=== PATIENT | male | born 1955 | race Caucasian/White ===

== ENCOUNTER 2025-05-09 12:32 | Outpatient (CLI) | payer MEDICARE, SELFPAY ==
--- NOTE | 2025-05-09 12:33 | XR_ITS ---
FINAL REPORT CLINICAL HISTORY: knee pain COMPARISON: None FINDINGS: LEFT KNEE Three views demonstrate no acute fracture or dislocation. There is mild narrowing of the medial compartment joint space. Chondrocalcinosis is noted of the medial and lateral joint spaces. There are mild hypertrophic changes at the medial and lateral joint margins consistent with osteoarthritis. No acute soft tissue abnormality is seen. IMPRESSION: Mild hypertrophic changes consistent with osteoarthritis. Reviewed, Interpreted and Dictated by Henry Wakefield MD Transcribed by Sheila Isbell Authenticated and [facility]
== END 2025-05-09 23:59 | disposition home or self-care (01) ==
LOC: RAD 12:33
PROVIDERS: Visit Provider Physician Assistant Surgical
DX: M17.12 Unilateral primary osteoarthritis, left knee (principal)
CPT/HCPCS: 73562

== ENCOUNTER 2025-07-08 11:17 | Outpatient (CLI) | payer MEDICARE, BC, SELFPAY ==
--- OUTSIDE RECORDS SUMMARY | 2025-05-20 14:30 | XMS_ITS | Encounter Summary ---
Author Organization [place] [address] Care Team Providers Care Metal Crafts Teacher Name Role Phone Unavailable Primary Care Provider Unavailabl e Reason for Referral * PFT (Routine) - Pending Review Specialty Diagnoses / Procedures Referred By Contac t Referred To Contact Diagnoses PAF (paroxysmal atrial fibrillation) (HCC) Procedures PULMONARY FUNCTION TEST Shefali Olivas MD [address] [place] [address] [place] [address] Phone: tel: fax: Referral ID Status Reason Start Date Expiration Date V isits Requested Visits Authorized [id number] Pending Review 05/20/2025 05/20/2026 1 1 * Holter Monitor (Routine) - Authorization Not Needed Specialty Diagnoses / Procedures Referred By Contac t Referred To Contact Radiology Diagnoses PAF (paroxysmal atrial fibrillation) (HCC) Procedures HOLTER MONITOR RECORDING AND ANALYSIS Shefali Olivas MD [address] [place] [address] [place] [address] Phone: tel: fax: Referral ID Status Reason Start Date Expiration Date Visits Requested Visits Authorized [id number] Authorization Not Needed 05/20/2025 05/20/2027 1 1 * Echo (Routine) - Authorization Not Needed Specialty Diagnoses / Procedures Referred By Contac t Referred To Contact Radiology Diagnoses PAF (paroxysmal atrial fibrillation) (HCC) Procedures EC ECHOCARDIOGRAM COMPLETE W DOPPLER AND COLOR FLOW MAPPING Shefali Olivas MD [address] [place] [address] [place] [address] Phone: tel: fax: Referral ID Status Reason Start Date Expiration Date Visits Requested Visits Authorized [id number] Authorization Not Needed 05/20/2025 05/20/2027 1 1 * Consultation (Routine) - Pending Review Specialty Diagnoses / Procedures Referred By Contac t Referred To Contact Sleep Center Diagnoses PAF (paroxysmal atrial fibrillation) (HCC) Procedures IA OFFICE/OUTPATIENT NEW MODERATE MDM 45 MINUTES Shefali Olivas MD [address] [place] [address] [place] [address] Phone: tel: fax: Anthony San MD [address] [place] [phone] Phone: tel: fax: Referral ID Status Reason Start Date Expiration Date V isits Requested Visits Authorized [id number] Pending Review 05/20/2025 05/20/2026 99 99 Question Answer What test needs to be performed? Appropriate testing as determined by sleep specialist/sleep medicine protocols Reason for Visit * Reason Comments New Patient referred to Dr. Salty enriquez by Frances Cowart APRN at [facility] for AF ablationMeds per pt report Encounter Details Date Type Department Care Team (Late st Contact Info) Description 05/20/2025 2:30 PM EDT Office Visit [facility] [address] [place] [address] Shefali Olivas MD [address] [place] [address] [place] [address] PAF (paroxysmal atrial fibrillation) (HCC) (Primary Dx) Social History Tobacco Use Types Packs/Day Years Used Date Smoking Tobacco: Never Smokeless Tobacco: Never Tobacco Cessation:Counseling Given: Not Answered Alcohol Use Standard Drinks/Week Comments Never 0 (1 standard drink = 0.6 oz pur e alcohol) Sexually Active Control Partners Comments Never Sex and Gender Information Value Date Recorded Sex Assigned at Not on file Legal Sex Male 11:20 AM EDT Gender Identity Not on file Sexual Orientation Not on file documented as of this encounter Last Filed Vital Signs Vital Sign Reading Time Taken Comments Blood Pressure 140/96 05/20/2025 2:28 PM EDT Pulse 88 05/20/2025 2:28 PM EDT Temperature - - Respiratory Rate - - Oxygen Saturation 95% 05/20/2025 2:28 PM EDT Inhaled Oxygen Concentration - - Weight - - Height - - Body Mass Index - - documented in this encounter Progress Notes * Shefali Olivas MD - 05/20/2025 2:30 PM EDT Cardiac Electrophysiology Progress Note Patient ID: Nir Thrasher is a 69 y.o. male. Chief Complaint Patient presents with New Patient referred to Dr. Olivas by Frances Cowart APRN at [facility] for AF ablation Meds per pt report Patient gets TORRES with Abstract Chronicity: referred to Dr. Olivas by Frances Cowart APRN at [facility] for AF ablation. Associated symptoms include fatigue. Pertinent negatives include no arthralgias, coughing, diaphoresis, headaches, myalgias, rash, urinary symptoms, vertigo or weakness. Their chronic cardiac conditions are: Problem List Cardiology Problems CAD (coronary artery disease) Essential hypertension Hyperlipidemia PAF (paroxysmal atrial fibrillation) ([facility]) Social History Tobacco Use Smoking Status Never Smokeless Tobacco Never Current Outpatient Medications Medication Sig Dispense Refill atorvastatin (LIPITOR) 80 mg Oral Tablet Take 80 mg by mouth daily. buPROPion (WELLBUTRIN SR) 150 mg Oral tablet sustained-release 12 hr Take 150 mg by mouth daily. DULoxetine (CYMBALTA) 30 mg Oral Capsule, Delayed Release(E.C.) Take 30 mg by mouth daily. DULoxetine (CYMBALTA) 60 mg Oral Capsule, Delayed Release(E.C.) Take 60 mg by mouth daily. fUROsemide (LASIX) 20 mg Oral Tablet Take 20 mg by mouth daily. lisinopriL (PRINIVIL;ZESTRIL) 20 mg Oral Tablet tablet Take 20 mg by mouth daily. metoprolol (LOPRESSOR) 25 mg Oral Tablet Take 25 mg by mouth 2 times daily. omeprazole (PRILOSEC) 20 mg Oral Capsule, Delayed Release(E.C.) Take 20 mg by mouth every morning (before breakfast). potassium chloride (KLOR-CON M) 20 mEq Oral Tab Sust.Rel. Particle/Crystal Take 20 mEq by mouth 2 times daily. pregabalin (LYRICA) 150 mg Oral Capsule Take 150 mg by mouth 3 times daily. rivaroxaban (XARELTO) 20 mg Oral Tablet Take 20 mg by mouth daily. spironolactone (ALDACTONE) 25 mg Oral Tablet Take 25 mg by mouth daily. tamsulosin (FLOMAX) 0.4 mg Oral Capsule Take 0.4 mg by mouth daily. No current facility-administered medications for this visit. Patients past medical, family and social histories were reviewed and updated. There were no changesexcept as noted Review of Systems Constitutional: Positive for fatigue. Negative for diaphoresis, malaise/fatigue, weight gain and weight loss. HENT: Negative for nosebleeds. Cardiovascular: Positive for irregular heartbeat. Negative for dyspnea on exertion, leg swelling, palpitations and syncope. Respiratory: Positive for shortness of breath. Negative for cough. Skin: Negative for flushing and rash. Musculoskeletal: Negative for arthralgias, falls and myalgias. Gastrointestinal: Negative for heartburn and melena. Neurological: Positive for dizziness and light-headedness. Negative for headaches, vertigo and weakness. Psychiatric/Behavioral: Negative for depression. The patient does not have insomnia. Allergic/Immunologic: Negative for hives and persistent infections. Objective: Patient Vitals for the past 24 hrs: Pulse BP 05/20/25 1428 88 140/96 There is no height or weight on file to calculate BMI. General: No apparent distress. Alert and oriented. Neck:Trachea is midline. Neck veins are flat. Respiratory: Clear to auscultation bilaterally Cardiovascular: Rhythm is regular. S1 and S2 normal. Abdomen: Abdomen is soft and non tender. Extremeties: No Edema. Clubbing is absent. Cyanosis is absent. Skin: Warm and dry. Neurological: Cranial nerves are grossly intact. Speech is normal. [id number] Stroke Risk Points: 2 Values used to calculate this score: Points Metrics 0 Has Congestive Heart Failure: No 1 Has Hypertension: Yes 1 Age: 69 0 Has Diabetes: No 0 Had Stroke: No Had TIA: No Had Thromboembolism: No 0 Has Vascular Disease: No 0 Clinically Relevant Sex: Male EKG: AF1 Assessment and Plan: Persistent AF First diagnosed, 5 years ago 2 cardioversions, last one years ago Was on sotalol for second cardioversion Will order TTE for LA size Currently rate controlled. Asymptomatic from AF standpoint. Not a good candidate for AF ablation, longstanding persistent minimal symptoms. Low amplitude fibrillatory waves on ECG, AVI referral Coronary artery disease s/p PCI at OSH Tobacco abuse 4. TORRES PFTs HM for HRV documented in this encounter Miscellaneous Notes * Patient Instructions - Brenda Bradley MA - 05/20/2025 2:30 PM EDT You may be contacted by mail or e-mail to participate in a patient satisfaction survey regarding your office visit today. We value your opinion and depend on your feedback to make improvements and provide you with the best possible experience while receiving high quality medical treatment. Your time in completing this survey is greatly appreciated. * Addendum Note - Danni Patiño MA - 05/20/2025 2:30 PM EDTAddended by: DANNI PATIÑO on: 05/20/2025 03:08 PM Modules accepted: Orders documented in this encounter Plan of Treatment Upcoming Encounters Date Type Department Care Team (Late st Contact Info) Description 07/21/2025 7:00 PM EST Appointment [facility] [address] [place] [address] 07/22/2025 1:30 PM EST Appointment [facility]G PFT [facility] [place] [address] 08/07/2025 12:45 PM EST Office [place] [facility] [address] [phone] Lety Kauffman MD [address] [place] [id number] 08/26/2025 2:00 PM EST Office Visit [facility] [address] [place] [address] Shefali Olivas MD [address] [facility] [place] [address] Scheduled Orders Name Type Priority Associated Diagnoses Orde r Schedule PULMONARY FUNCTION TEST PFT Routine PAF (paroxysmal atrial fibrillation) ([facility]) 1 Occurrences starting 05/20/2025 until 05/20/2026 Scheduled Referrals Name Type Priority Associated Diagnoses Orde r Schedule AMB REFERRAL TO SLEEP STUDIES/MEDICINE Outpatient Referral Routine PAF (paroxysmal atrial fibrillation) ([facility]) Ordered: 05/20/2025 documented as of this encounter Procedures Procedure Name Priority Date/Time Associated Diagnosis Comments POCT EKG Routine 05/20/2025 2:41 PM EDT PAF (paroxysmal atrial fibrillation) ([facility]) documented in this encounter Results * EC ECHOCARDIOGRAM COMPLETE W DOPPLER AND COLOR FLOW MAPPING (06/19/2025 2:25 PM EDT) LV DIASTOLIC PLAX 6.04 cm PYRAMIS Ejection Fraction 40-45% PYRAMIS MITRAL REGURGITATION moderate PYRAMIS AORTIC STENOSIS no PYRAMIS Anatomical Region Laterality Modality Electrocardiogra phy 06/19/2025 1:41 PM EDT Impressions 06/19/2025 3:12 PM EDT Conclusions * Left ventricular chamber dimension is mildly enlarged. * Left ventricular function is moderately reduced with an estimated ejection fraction of 40-45%. * The left ventricular diastolic function is indeterminate. * Estimated pulmonary artery systolic pressure is 33 mmHg. * Left atrial chamber dimension is severely enlarged. * Right atrial chamber dimension is severely enlarged. * There is mild to moderate mitral valve regurgitation. * The proximal ascending aorta is moderately dilated at 4.7 cm. * There is mild aortic valve regurgitation. * There is no pericardial effusion. Narrative Procedure Note Thomas Marshall MD - 06/19/2025 IMPRESSION Conclusions * Left ventricular chamber dimension is mildly enlarged. * Left ventricular function is moderately reduced with an estimatedejection fraction of 40-45%. * The left ventricular diastolic function is indeterminate. * Estimated pulmonary artery systolic pressure is 33 mmHg. * Left atrial chamber dimension is severely enlarged. * Right atrial chamber dimension is severely enlarged. * There is mild to moderate mitral valve regurgitation. * The proximal ascending aorta is moderately dilated at 4.7 cm. * There is mild aortic valve regurgitation. * There is no pericardial effusion. us Shefali Olivas MD IMG ECHO ORDERABLES Marly l Result * HOLTER MONITOR RECORDING AND ANALYSIS (06/19/2025 2:13 PM EDT) Anatomical Region Laterality Modality Holter/Event Mon itoring 06/25/2025 8:42 AM EDT Impressions 06/25/2025 10:[address] [facility] Test Date: 2025-06-25 Pat Name: [facility] Department: DEPID Room: Gender: Male Photographs Curator: : 1955 Requested By: SHEFALI MATOS Order Number: [id number] Reading MD: Adriano Harley MD Interpretive Statements Vocational Technical Education Director Date: 06/19/2025 Referring Provider: Dr. Shefali Olivas MD Patient was monitored for 48 hours. INDICATIONS: I48.0 Paroxysmal atrial fibrillation CONCLUSION: The predominant rhythm was Atrial Fibrillation/Flutter. The Maximum Heart Rate recorded was 145 bpm, 06/19 17:40:25, the Minimum Heart Rate recorded was 37 bpm, 06/20 15:06:10, and the Average Heart Rate was 70 bpm. There were 494 VE beats with a burden of <1 %. The study included an Atrial Fibrillation/Flutter [place] of 100 % with 1 % in RVR and 4 % in SVR. The longest episode was 1d 20h 40m 56.8s, 06/19 14:17:19, and the Fastest episode was 145 bpm, 06/19 14:17:19. There was 1 Patient Trigger. Electronically Signed On 06-25-2025 10:23:36 EDT by Adriano Harley MD Narrative Procedure Note Adriano Harley MD - 06/25/[address] Test Date: 2025-06-25 Pat Name: [facility] Department: DEPID Room: Gender: Male Photographs Curator: : 1955 Requested By: SHEFALI LAROSE Order Number: [id number] Reading MD: Adriano Harley MD Interpretive Statements Vocational Technical Education Director Date: 06/19/2025 Referring Provider: Dr. Shefali Olivas MD Patient was monitored for 48 hours. INDICATIONS: I48.0 Paroxysmal atrial fibrillation CONCLUSION: The predominant rhythm was Atrial Fibrillation/Flutter. The Maximum Heart Rate recorded was 145 bpm, 06/19 17:40:25, theMinimum Heart Rate recorded was 37 bpm, 06/20 15:06:10, and the Average HeartRate was 70 bpm. There were 494 VE beats with a burden of <1 %. The study included an Atrial Fibrillation/Flutter [place] of 100 % with 1% in RVR and 4 % in SVR. The longest episode was 1d 20h 40m 56.8s, 06/19 14:17:19, and the Fastest episode was 145 bpm, 06/19 14:17:19. There was 1 Patient Trigger. Electronically Signed On 06-25-2025 10:23:36 EDT by Adriano Harley MD Shefali Olivas MD IMG HOLTER MONITOR ORDER PINA Final Result * POCT EKG (05/20/2025 2:41 PM EDT) 05/20/2025 2:41 PM EDT Impressions [facility] - 05/20/2025 2:41 PM EDT Atrial Fibrillation, controlled Shefali Olivas MD POINT OF CARE CARDIOLOGY Final Result [facility] OFF[facility] documented in this encounter Visit Diagnoses Diagnosis PAF (paroxysmal atrial fibrillation) (HCC)- Primary Atrial fibrillation PAF (paroxysmal atrial fibrillation) (HCC) Atrial fibrillation PAF (paroxysmal atrial fibrillation) (HCC) Atrial fibrillation documented in this encounter Historical Medications * This list may reflect changes made after this encounter. pregabalin (LYRICA) 150 mg Oral Capsule Take 150 mg by mouth 3 times daily. fUROsemide (LASIX) 20 mg Oral Tablet Take 20 mg by mouth daily. spironolactone (ALDACTONE) 25 mg Oral Tablet Take 25 mg by mouth daily. potassium chloride (KLOR-CON M) 20 mEq Oral Tab Sust.Rel. Particle/Crystal Take 20 mEq by mouth 2 times daily. lisinopriL (PRINIVIL;ZESTRIL ) 20 mg Oral Tablet tablet Take 20 mg by mouth daily. buPROPion (WELLBUTRIN SR) 150 mg Oral tablet sustained-release 12 hr Take 150 mg by mouth daily. omeprazole (PRILOSEC) 20 mg Oral Capsule, Delayed Release(E.C.) Take 20 mg by mouth every morning (before breakfast). metoprolol (LOPRESSOR) 25 mg Oral Tablet Take 25 mg by mouth 2 times daily. rivaroxaban (XARELTO) 20 mg Oral Tablet Take 20 mg by mouth daily. tamsulosin (FLOMAX) 0.4 mg Oral Capsule Take 0.4 mg by mouth daily. DULoxetine (CYMBALTA) 60 mg Oral Capsule, Delayed Release(E.C.) Take 60 mg by mouth daily. DULoxetine (CYMBALTA) 30 mg Oral Capsule, Delayed Release(E.C.) Take 30 mg by mouth daily. atorvastatin (LIPITOR) 80 mg Oral Tablet Take 80 mg by mouth daily. added in this encounter
--- OUTSIDE RECORDS SUMMARY | 2025-06-12 14:00 | XMS_ITS | Encounter Summary ---
Author Organization [place] [address] Care Team Providers Care Director Of Admissions Name Role Phone Unavailable Primary Care Provider Unavailabl e Reason for Referral * Sleep Center (Routine) - Authorized Specialty Diagnoses / Procedures Referred By Contac t Referred To Contact Diagnoses Snoring PAF (paroxysmal atrial fibrillation) (HCC) Essential hypertension Coronary artery disease involving [place] heart without angina pectoris, unspecified vessel or lesion type Mood disorder Obesity (BMI 30.0-34.9) Procedures POLYSOMNOGRAPHY 4 OR MORE PARAMETERS POLYSOMNOGRAPHY 4 OR MORE PARAMETERS MA POLYSOM ANY AGE SLEEP STAGE 1-3 ADDL YUDITH ATTND MA POLYSOM 6/>YRS SLEEP 4/> ADDL YUDITH ATTND MA ELECTROENCEPHALOGRAM EXTEND MONITORING 41-60 MIN MA POLYSOM 6/>YRS SLEEP W/CPAP 4/> ADDL YUDITH ATTND MA SLEEP STD REC VNTJ RESPIR ECG/HRT RATE&O2 ATTN Lety Kauffman MD [address] [place] [address] Phone: tel: fax: [facility] Sleep Med [address] [address] Phone: tel: Referral ID Status Reason Start Date Expiration Date V isits Requested Visits Authorized [id number] Authorized 06/12/2025 06/12/2026 1 1 Encounter Details Date Type Department Care Team (Late st Contact Info) Description 06/12/2025 2:00 PM EDT Office Visit [facility] Sleep Medicine [address] [address] Lety Kauffman MD [address] [place] [address] Snoring (Primary Dx); PAF (paroxysmal atrial fibrillation) (HCC); Essential hypertension; Coronary artery disease involving [place] heart without angina pectoris, unspecified vessel or [...] nightly for 1 day. 1 Tablet 06/12/2025 5 documented in this encounter H&P Notes * Lety Kauffman MD - 06/12/2025 2:00 PM EDT Images from the original note were not included. New Patient Initial Visit PCP Referring physician : No primary care provider on file. 06/12/2025 Lety Kauffman MD MEDICAL DECISION MAKING Sleep Medicine Diagnoses 1. Snoring 2. PAF (paroxysmal atrial fibrillation) (HCC) 3. Essential hypertension 4. Coronary artery disease involving [place] heart without angina pectoris, unspecified vessel or [...] Present Illness Nir was sent by his manager aerospace for eval of AVI as he has [...] 05/20/2025 Hyperlipidemia 05/20/2025 PAF (paroxysmal atrial fibrillation) ([facility]) 05/20/2025 No past surgical history on file. [...] (I have reviewed all data listed below) [place] Sleepiness Scale 11 > 10 indicates Excessive Daytime Sleepiness Medical Comorbidity Pulmonary Functions Testing Results: No results found for: FEV1 , FVC , [id number] , TLC , DLCO (FEV1 < 60% [...] , HGB , HCT , PLT , [id number] , FOLATE , FERRITIN documented in this encounter Plan of Treatment Upcoming Encounters Date Type Department Care Team (Late st Contact Info) Description 07/21/2025 7:00 PM EST Appointment [facility] Sleep Disorder Center [address] [place], [place] [id number] 07/22/2025 1:30 PM EST Appointment EDG PFT LAB [facility] [place] [address] 91 08/07/2025 12:45 PM EST Office Visit [facility] [address] [phone] Lety Kauffman MD [address] [place] [address] 08/26/2025 2:00 PM EST Office Visit [facility] [address] [facility] [address] [place] [address] Paulino Olivas MD [address] [facility] [address] Scheduled Orders Name Type Priority Associated Diagnoses Orde r Schedule POLYSOMNOGRAPHY 4 OR MORE PARAMETERS Sleep Center Routine Snoring PAF (paroxysmal atrial fibrillation) (HCC) Essential hypertension Coronary artery disease involving [place] heart without angina pectoris, unspecified vessel or lesion type Mood disorder Obesity (BMI 30.0-34.9) 1 Occurrences starting 06/12/2025 until 06/12/2026 documented as of this encounter Visit Diagnoses Diagnosis Snoring- Primary Other dyspnea and respiratory abnormality PAF (paroxysmal atrial fibrillation) (HCC) Atrial fibrillation Essential hypertension Unspecified essential hypertension Coronary artery disease involving [place] heart without angina pectoris, unspecified vessel or lesion type Mood disorder Unspecified episodic mood disorder Obesity (BMI 30.0-34.9) Obesity, unspecified documented in this encounter
--- OUTSIDE RECORDS SUMMARY | 2025-06-19 12:30 | XMS_ITS | Encounter Summary ---
Author Organization [place] [address] Care Team Providers Care Caretaker Resort Name Role Phone Unavailable Primary Care Provider Unavailabl e Reason for Referral * Holter Monitor (Routine) - Authorization Not Needed Specialty Diagnoses / Procedures Referred By Contac t Referred To Contact Radiology Diagnoses PAF (paroxysmal atrial fibrillation) (HCC) Procedures HM HOLTER MONITOR RECORDING AND ANALYSIS Paulino Olivas MD [address] [place] [address] [place] [address] Phone: tel: fax: Referral ID Status Reason Start Date Expiration Date Visits Requested Visits Authorized [id number] Authorization Not Needed 05/20/2025 05/20/2027 1 1 Reason for Visit * Holter Monitor (Routine) - Authorization Not Needed Specialty Diagnoses / Procedures Referred By Jackelyn herron Referred To Contact Radiology Diagnoses PAF (paroxysmal atrial fibrillation) (HCC) Procedures HM HOLTER MONITOR RECORDING AND ANALYSIS Paulino Olivas MD [address] [place] [address] [place] [address] Phone: tel: fax: Referral ID Status Reason Start Date Expiration Date Visits Requested Visits Authorized [id number] Authorization Not Needed 05/20/2025 05/20/2027 1 1 Encounter Details Date Type Department Care Team (Latest Contact Info) Description 06/19/2025 12:30 PM EDT - 06/19/2025 12:51 PM EDT Hospital Encounter EDG HOLTER MONITOR [facility] [place] [address] Paulino Olivas MD [address] [place] [address] [place] [address] PAF (paroxysmal atrial fibrillation) ([facility]) Discharge Disposition: Home or Self Care Social [...] Info) Description 07/21/2025 7:00 PM EST Appointment [facility] Sleep Disorder Center [place] [address] [facility] [address] [place] [address] 07/22/2025 1:30 PM EST Appointment EDG PFT LAB [place] [address] 08/07/2025 12:45 PM EST Office Visit [facility] [address] [address] Lety Kauffman MD [address] [place] [id number] 08/26/2025 2:00 PM EST Office Visit [facility] Arr[facility]ia Ctr Edg [address] [facility] [address] [place] [address] Paulino Olivas MD [address] [place] [address] [place] [address] documented as of this encounter Procedures Procedure [...] NIR JOHNSON Department: DEPID Room: Gender: Male [employer] Sales Consultant: : 1955 Requested By: PAULINO MATOS Order Number: [id number] Antonio MD: Adriano Harley MD Interpretive Statements Share Dairy Farmer Date: 06/19/2025 Referring Provider: Dr. Paulino Olivas [...] %. The study included an Atrial Fibrillation/Flutter [place] of 100 % with 1 % in [...] [facility] [place] Test Date: 2025-06-25 Pat Name: [facility] Department: DEPID Room: Gender: Male [employer] Sales Consultant: : 1955 Requested By: PAULINO LAROSE Order Number: [id number] Reading MD: Adriano Harley MD Interpretive Statements Share Dairy Farmer Date: 06/19/2025 Referring Provider: Dr. Paulino Olivas [...] %. The study included an Atrial Fibrillation/Flutter [place] of 100 % with 1% in RVR [...]
--- OUTSIDE RECORDS SUMMARY | 2025-06-19 12:52 | XMS_ITS | Encounter Summary ---
Author Organization [place] [address] Care Team Providers Care Life Support Technician Name Role Phone Unavailable Primary Care Provider Unavailabl e Reason for Referral * Echo (Routine) - Authorization Not Needed Specialty Diagnoses / Procedures Referred By Contac t Referred To Contact Radiology Diagnoses PAF (paroxysmal atrial fibrillation) (HCC) Procedures EC ECHOCARDIOGRAM COMPLETE W DOPPLER AND COLOR FLOW MAPPING Paulino Olivas MD [address] [place] [address] [place] [address] Phone: tel: fax: Referral ID Status Reason Start Date Expiration Date Visits Requested Visits Authorized [id number] Authorization Not Needed 05/20/2025 05/20/2027 1 1 Reason for Visit * Echo (Routine) - Authorization Not Needed Specialty Diagnoses / Procedures Referred By Contac t Referred To Contact Radiology Diagnoses PAF (paroxysmal atrial fibrillation) (HCC) Procedures EC ECHOCARDIOGRAM COMPLETE W DOPPLER AND COLOR FLOW MAPPING Paulino Olivas MD [address] [place] [address] [place] [address] Phone: tel: fax: Referral ID Status Reason Start Date Expiration Date Visits Requested Visits Authorized [id number] Authorization Not Needed 05/20/2025 05/20/2027 1 1 Encounter Details Date Type Department Care Team (Latest Contact Info) Description 06/19/2025 12:52 PM EDT - 06/19/2025 11:59 PM EDT Hospital Encounter EDG ECHO [facility] [address] [place] [address] Paulino Olivas MD [address] [place] [address] [address] [place] [facility] [place] PAF (paroxysmal atrial fibrillation) ([facility]ER[facility]) Discharge Disposition: Home or Self Care Social [...] Info) Description 07/21/2025 7:00 PM EST Appointment [facility] Sleep Disorder Center [place] [address] [facility] [address] [place] [address] 07/22/2025 1:30 PM EST Appointment EDG PFT LAB One [facility] [place] [address] 08/07/2025 12:45 PM EST Office Visit [facility] [address] [phone] Lety Kauffman MD [address] [place] [phone] 08/26/2025 2:00 PM EST Office Visit [facility] [address] [facility] [address] [place] [address] Paulino Olivas MD [address] [facility] [place] [address] documented as of this encounter Procedures [...]
--- NOTE | 2025-07-08 | CA_ITS ---
APPROVED REPORT Exam: Pharmacologic Technologist: Cady Oseguera Stress Nurse: Doris DIGGS, RN Ht: 6 ft 0 in Wt: 256 lbs BSA: 2.37 m2 HR: 59 bpm BP: 145/99 mmHg Indications: Chest pain Stress Test Details Test: Lexiscan HR Resting HR: 59 bpm Max Heart Rate (APMHR): 150.795179 bpm Max HR Achieved: 82 bpm Target HR (85% APMHR): 127.706689 bpm % of APMHR: 54.67 Recovery HR: 65 bpm BP Resting BP: 145.0/99.0 mmHg Max BP: 144.0/95.0 mmHg Recovery BP: 141.0/90.0 mmHg ECG Resting ECG: Atrial fibrillation rate controlled Stress ECG Conclusion Lungs clear to auscultation prior to test start. Symptoms: None Arrhythmias/Ectopy: None ST-T Changes: Less than 0.[address] segment changes. Conclusion: Nondiagnostic ECG/Lexiscan Electronically signed by : Germaine Cruz MD 07/09/2025 12:23:41
--- OUTSIDE RECORDS SUMMARY | 2025-07-08 11:21 | XMS_ITS | Encounter Summary ---
Author Organization [employer] [address] Care Team Providers Care Forestry Engineer Name Role Phone Unavailable Primary Care Provider Unavailabl e Reason for Visit * Reason Onset Date Comments Appointment Needed 05/16/2025 ANIMAL PHYSIOLOGY TEACHER appt ref rodrigo y Frances Cowart APRN @ [facility] Encounter Details Date Type Department Care Team (Late st Contact Info) Description 05/16/2025 Telephone [facility] [address] [facility] [address] [place] [address] Paulino Olivas MD [address] [place], [place] [phone] Appointment Needed (ANIMAL PHYSIOLOGY TEACHER appt ref by Frances Cowart APRN @ [facility]) Social History Tobacco Use Types Packs/Day Years Used Date Smoking Tobacco: Never Assessed Sex and Gender Information Value Date Recorded Sex Assigned at Not on file Legal Sex Male 11:20 AM EDT Gender Identity Not on file Sexual Orientation Not on file documented as of this encounter Miscellaneous Notes * Telephone Encounter - Nuria Chatman Clerical Staff - 05/16/2025 1:39 PM EDT Patient returned call. Appointment scheduled * Telephone Encounter - Michelle Woods MA - 05/16/2025 12:[address] [facility] * Telephone Encounter - Nuria Chatman, Clerical Staff - 05/16/2025 12:49 PM EDT Called and left a message on vm * Telephone Encounter - Manda Huang Clerical Staff - 05/16/2025 12:22 PM EDT Patient is being referred to Dr. Olivas by Frances Cowart APRN at [facility] for AF ablation. MR/REF scanned into media including EKG tracing. Please contact patient at [phone] Thank you documented in this encounter Plan of Treatment Upcoming Encounters Date Type Department Care Team (Late st Contact Info) Description 07/21/2025 7:00 PM EST Appointment [facility] Sleep Disorder Center [address] [place] [address] 07/22/2025 1:30 PM EST Appointment EDG PFT LAB [facility] [place] [address] 08/07/2025 12:45 PM EST Office Visit [facility] [address] [phone] Lety Kauffman MD [address] [place] [address] 08/26/2025 2:00 PM EST Office Visit [facility] [address] [facility] [place] [address] Paulino Olivas MD [address] [place] [address] [place] [address] documented as of this encounter Visit Diagnoses Not on filedocumented in this encounter
--- OUTSIDE RECORDS SUMMARY | 2025-07-08 11:21 | XMS_ITS | Clinical Summary ---
Author Organization [facility] [place] Address [address] [facility] [address] [place] [address] Phone Care Team Providers Care Barking Machine Feeder Name Role Phone Unavailable Primary Care Provider Unavailabl e Allergies Active Allergy Reactions Criticality Noted Date Comments Adhesive Rash 05/20/2025 Medications atorvastatin (LIPITOR) 80 mg Oral Tablet Take 80 mg by mouth daily. Active DULoxetine (CYMBALTA) 30 mg Oral Capsule, Delayed Release(E.C.) Take 30 mg by mouth daily. Active DULoxetine (CYMBALTA) 60 mg Oral Capsule, Delayed Release(E.C.) Take 60 mg by mouth daily. Active tamsulosin (FLOMAX) 0.4 mg Oral Capsule Take 0.4 mg by mouth daily. Active rivaroxaban (XARELTO) 20 mg Oral Tablet Take 20 mg by mouth daily. Active metoprolol (LOPRESSOR) 25 mg Oral Tablet Take 25 mg by mouth 2 times daily. Active omeprazole (PRILOSEC) 20 mg Oral Capsule, Delayed Release(E.C.) Take 20 mg by mouth every morning (before breakfast). Active buPROPion (WELLBUTRIN SR) 150 mg Oral tablet sustained-relea se 12 hr Take 150 mg by mouth daily. Active lisinopriL (PRINIVIL;ZESTR IL) 20 mg Oral Tablet tablet Take 20 mg by mouth daily. Active potassium chloride (KLOR-CON M) 20 mEq Oral Tab Sust.Rel. Particle/Vivian l Take 20 mEq by mouth 2 times daily. Active spironolactone (ALDACTONE) 25 mg Oral Tablet Take 25 mg by mouth daily. Active fUROsemide (LASIX) 20 mg Oral Tablet Take 20 mg by mouth daily. Active pregabalin (LYRICA) 150 mg Oral Capsule Take 150 mg by mouth 3 times daily. Active mirtazapine (REMERON) 15 mg Oral Tablet Take 1 Tablet by mouth nightly for 1 day. 1 Tablet 06/12/2025 06/13/20 Active Problems Problem Noted Date Diagnosed Date PAF (paroxysmal atrial fibrillation) 05/20/2025 CAD (coronary artery disease) 05/20/2025 Hyperlipidemia 05/20/2025 Essential hypertension 05/20/2025 Encounters Date Type Department Care Team Description 07/04/2025 Telephone [facility] [address] [place] [phone] Paulino Olivas MD Results (ECHO and other tests ) 06/19/2025 12:52 PM EDT - 06/19/2025 11:59 PM EDT Hospital Encounter EDG ECHO [facility] [address] [place] [id number] Paulino Olivas MD PAF (paroxysmal atrial fibrillation) (HCC) Discharge Disposition: Home or Self Care 06/19/2025 12:30 PM EDT - 06/19/2025 12:51 PM EDT Hospital Encounter EDG HOLTER MONITOR [facility] [place] [address] Paulino Olivas MD PAF (paroxysmal atrial fibrillation) (HCC) Discharge Disposition: Home or Self Care 06/19/2025 Results Follow-Up [facility] [address] [place] [phone] Paulino Olivas MD EC ECHOCARDIOGRAM COMPLETE W DOPPLER AND COLOR FLOW MAPPING 06/12/2025 2:00 PM EDT Office Visit [facility] Sleep Medicine [address] [phone] Lety Kauffman MD Snoring (Primary Dx); PAF (paroxysmal atrial fibrillation) (HCC); Essential hypertension; Coronary artery disease involving chicken ranch heart without angina pectoris, unspecified vessel or lesion type; Mood disorder; Obesity (BMI 30.0-34.9) 05/21/2025 Telephone [facility] [address] [place] [address] Paulino Olivas MD Other 05/20/2025 2:30 PM EDT Office Visit [facility] [address] [facility] [address] [place] [address] Paulino Olivas MD PAF (paroxysmal atrial fibrillation) (HCC) (Primary Dx) 05/16/2025 Telephone [facility] [address] [facility] [address] [place] [address] Paulino Olivas MD Referral 05/16/2025 Telephone [facility] [address] [facility] [address] [place] [address] Paulino Olivas MD Appointment Needed (MATERIAL HANDLER FLOORPERSON appt ref by Frances Cowart APRN @ [facility]) from Last 3 Months Medical History Medical History Date Comments PAF (paroxysmal atrial fibrillation) (HCC) 05/20 CAD (coronary artery disease) 05/20/2025 Hyperlipidemia 05/20/2025 Essential hypertension 05/20/2025 Social History Tobacco Use Types Packs/Day Years [...] on file Sexual Orientation Not on file Last Filed Vital Signs Vital Sign Reading Time Taken Comments Blood Pressure 140/96 05/20/2025 2:28 PM EDT Pulse 88 05/20/2025 2:28 PM EDT Temperature - - Respiratory Rate - - Oxygen Saturation 95% 05/20/2025 2:28 PM EDT Inhaled Oxygen Concentration - - Weight - - Height - - Body Mass Index - - Plan of Treatment Upcoming Encounters Date Type Department Care Team (Late st Contact Info) Description 07/21/2025 7:00 PM EST Appointment [facility] Sleep Disorder Center [address] [place] [address] 07/22/2025 1:30 PM EST Appointment EDG PFT LAB [facility] [address] 08/07/2025 12:45 PM EST Office Visit [facility] [address] [phone] Lety Kauffman MD [address] [place] [address] 08/26/2025 2:00 PM EST Office Visit [facility] [address] [facility] [address] [place] [address] Paulino Olivas MD [address] [facility] [place] [address] Health Maintenance Due Date Last Done Comments Wellness Exam Medicare 1958 Hepatitis C Screening 1972 Cologuard 1999 Colon Cancer Screening 1999 Colonoscopy 1999 FIT 1999 Sigmoidoscopy 1999 Virtual Colonography 1999 Zoster (1 of 2) 2004 Pneumococcal Vaccine 50+ (2 of 2 - PCV) 05/04/2011 05/04/2010, 09/18/2007 RSV or 60+ (1 - Ris k 60-74 years 1-dose series) 2014 DTaP/TDaP/Td (2 - Td or Tdap) 08/27/2022, 08/22/1996 COVID-19 Vaccine (1 - 2024-2 6 season) 2025 Influenza Vaccine (#1) 2025 Hepatitis B Vaccine Aged Out No longe r eligible based on patient's age to complete this topic Meningococcal B Vaccine Aged Out No l onger eligible based on patient's age to complete this topic Procedures Procedure Name Priority Date/Time Associated Diagnosis Comments EC ECHOCARDIOGRAM COMPLETE W DOPPLER AND COLOR FLOW MAPPING Routine 06/19/2025 2:25 PM EDT PAF (paroxysmal atrial fibrillation) (HCC) HM HOLTER MONITOR RECORDING AND ANALYSIS Routine 06/19/2025 2:13 PM EDT PAF (paroxysmal atrial fibrillation) (HCC) POCT EKG Routine 05/20/2025 2:41 PM EDT PAF (paroxysmal atrial fibrillation) ([facility]) from Last 3 Months Results * EC ECHOCARDIOGRAM COMPLETE W DOPPLER [...] * There is no pericardial effusion. us Paulino Olivas MD IMG ECHO ORDERABLES Marly l Result * HOLTER MONITOR RECORDING AND ANALYSIS (06/19/2025 2:13 PM EDT) Anatomical Region Laterality Modality Holter/Event Mon itoring 06/25/2025 8:42 AM EDT Impressions 06/25/2025 10:[address] [facility] Test Date: 2025-06-25 Pat Name: [facility] Department: DEPID Room: Gender: Male Hand Booked Folder And Stitcher: : 1955 Requested By: PAULINO MATOS Order Number: [id number] Antonio MD: Adriano Harley MD Interpretive Statements Monorail Operator Date: 06/19/2025 Referring Provider: Dr. Paulino Olivas [...] %. The study included an Atrial Fibrillation/Flutter Phelan of 100 % with 1 % in [...] [place]ha [place] Test Date: 2025-06-25 Pat Name: [facility] Department: DEPID Room: Gender: Male Hand Booked Folder And Stitcher: : 1955 Requested By: PAULINO LAROSE Order Number: [id number] Antonio MENJIVAR: Adriano Harley MD Interpretive Statements Monorail Operator Date: 06/19/2025 Referring Provider: Dr. Paulino Olivas [...] %. The study included an Atrial Fibrillation/Flutter Phelan of 100 % with 1% in RVR and 4 % in SVR. The longest episode was 1d 20h 40m 56.8s, 06/19 14:17:19, and the Fastest episode was 145 bpm, 06/19 14:17:19. There was 1 Patient Trigger. Electronically Signed On 06-25-2025 10:23:36 EDT by Adriano Harley MD Paulino Olivas MD IMG HOLTER MONITOR ORDER PINA Final Result * POCT EKG (05/20/2025 2:41 PM EDT) 05/20/2025 2:41 PM EDT Impressions [facility] OFFICE - 05/20/2025 2:41 PM EDT Atrial Fibrillation, controlled us Paulino Olivas MD POINT OF CARE CARDIOLOGY Final Result [facility] OFFICE from Last 3 Months [place] [address] [facility] MEDICARE [place] PART A AND B ANTH
--- OUTSIDE RECORDS SUMMARY | 2025-07-08 11:21 | XMS_ITS | Encounter Summary ---
Author Organization [place] [address] Care Team Providers Care Crutch Maker Name Role Phone Unavailable Primary Care Provider Unavailabl e Encounter Details Date Type Department Care Team (Latest Contact Info) Description 06/19/2025 Results Follow-Up [facility] [address] [facility] [address] [place] [address] Paulino Olivas MD [address] [facility] [place] [address] EC ECHOCARDIOGRAM COMPLETE W DOPPLER AND COLOR FLOW MAPPING Social History Tobacco Use Types Packs/Day Years [...] on file documented as of this encounter Plan of Treatment Upcoming Encounters Date Type Department Care Team (Late st Contact Info) Description 07/21/2025 7:00 PM EST Appointment [facility] Sleep Disorder Center [place] [id number] [facility] [address] [place] [address] 07/22/2025 1:30 PM EST Appointment EDG PFT LAB [facility] [place] [address] 08/07/2025 12:45 PM EST Office Visit [facility] [address] [phone] Lety Kauffman MD [address] [place] [address] 08/26/2025 2:00 PM EST Office Visit [facility] [address] [place] [address] [place] [phone] Paulino Olivas MD [address] [place] [address] documented as of this encounter Visit Diagnoses Not on filedocumented in this encounter
--- OUTSIDE RECORDS SUMMARY | 2025-07-08 11:21 | XMS_ITS | Encounter Summary ---
Author Organization [place] [address] Care Team Providers Care Store Detective Name Role Phone Unavailable Primary Care Provider Unavailabl e Reason for Visit * Reason Onset Date Comments Other 05/21/2025 Encounter Details Date Type Department Care Team (Late st Contact Info) Description 05/21/2025 Telephone [facility] [address] [facility] [address] [place] [address] Paulino Olivas MD [address] [place] [phone] Other Social History Tobacco Use Types Packs/Day Years [...] encounter Miscellaneous Notes * Telephone Encounter - Anisha Rodriguez APRN - 05/22/2025 1:59 PM EDT Called and spoke with patient. Answered questions. Patient is scheduled for an ablation but it is afew hours away and he is just trying to decide if he should proceed or if he should wait until testing that Dr. Olivas ordered is done. He will probably reschedule his ablation, get the testing andthen see what happens. He also asked about a medication that started with an A that Dr. Olivas brought up. He said forhis rhythm. I advised most likely Amiodarone. He said that was it. He really is not wanting to takeany additional medications. Anisha Rodriguez APRN Cardiac Electrophysiology * Telephone Encounter - Nuria Chatman, Clerical Staff - 05/21/2025 4:25 PM EDT Patient was seen for AF, Echo, HM and PFT prior He is calling because he would like to talk to a nurse practitioner. He has some questions about the visit and treatment moving forward. Please call Nir @ [phone] Thank you documented in this encounter Plan of Treatment Upcoming Encounters Date Type Department Care Team (Late st Contact Info) Description 07/21/2025 7:00 PM EST Appointment [facility] Sleep Disorder Center [address] [place] [address] 07/22/2025 1:30 PM EST Appointment EDG PFT LAB [facility] [place] [address] 08/07/2025 12:45 PM EST Office Visit [facility] [address] [phone] Lety Kauffman MD [address] [place] [address] 08/26/2025 2:00 PM EST Office Visit [facility] [address] [facility] [address] [place] [address] Paulino Olivas MD [address] [place] [address] [place] [address] documented as of this encounter Visit Diagnoses Not on filedocumented in this encounter
--- OUTSIDE RECORDS SUMMARY | 2025-07-08 11:21 | XMS_ITS | Encounter Summary ---
Author Organization [place] [address] Care Team Providers Care Plaster Form Maker Name Role Phone Unavailable Primary Care Provider Unavailabl e Reason for Visit * Reason Onset Date Comments Results 07/04/2025 ECHO and other t ests Encounter Details Date Type Department Care Team (Late st Contact Info) Description 07/04/2025 Telephone [facility] [address] [facility] [address] [place] [address] Paulino Olivas MD [address] [place] [phone] Results (ECHO and other tests ) Social History Tobacco Use Types Packs/Day Years [...] Telephone Encounter - Anisha Rodriguez APRN - 07/04/2025 1:41 PM EDT Called and went over Echo re: EF, LA size. Patient has ablation [place] at [place] and is trying to decide if he should proceed. I recommended he contact the EP doing the procedure and maybe have him review the recent Echo. He asked if he should proceed with PFT/Sleep study and I recommended that he should. Anisha Rodriguez APRN Cardiac Electrophysiology ,w * Telephone Encounter - Nuria Chatman, Clerical Staff - 07/04/2025 1:29 PM EDT Patient is seen for AF. He is calling because he is calling for the results of the ECHO. Please call Nir @ [phone] Thank you documented in this encounter Plan of Treatment Upcoming Encounters Date Type Department Care Team (Late st Contact Info) Description 07/21/2025 7:00 PM EST Appointment [facility] Sleep Disorder Center [place] [address] [place] [address] [address] [place] [address] 07/22/2025 1:30 PM EST Appointment EDG PFT LAB [facility] [place] [address] 08/07/2025 12:45 PM EST Office Visit [facility] [address] [phone] Lety Kauffman MD [address] [place] [phone] 08/26/2025 2:00 PM EST Office Visit [facility] [address] [facility] [address] [place] [address] Paulino Olivas MD [address] [place] [address] [place] [address] documented as of this encounter Visit Diagnoses Not on filedocumented in this encounter
--- OUTSIDE RECORDS SUMMARY | 2025-07-08 11:21 | XMS_ITS | Encounter Summary ---
Author Organization [place] [address] Care Team Providers Care Patient Relations Coordinator Name Role Phone Unavailable Primary Care Provider Unavailabl e Reason for Visit * Reason Onset Date Comments Referral 05/16/2025 Encounter Details Date Type Department Care Team (Late st Contact Info) Description 05/16/2025 Telephone [facility] [address] [facility] [address] [place] [address] Paulino Olivas MD [address] [facility] [address] [facility] Referral Social History Tobacco Use Types Packs/Day Years Used Date Smoking Tobacco: Never Assessed Sex and Gender Information Value Date Recorded Sex Assigned at Not on file Legal Sex Male 11:20 AM EDT Gender Identity Not on file Sexual Orientation Not on file documented as of this encounter Miscellaneous Notes * Telephone Encounter - Michelle Woods MA - 05/16/2025 12:51 PM EDT [facility] to set up inpatient pharmacist appointment with [employer] refered for AF ablation discussion First available 05/20 documented in this encounter Plan of Treatment Upcoming Encounters Date Type Department Care Team (Late st Contact Info) Description 07/21/2025 7:00 PM EST Appointment [facility] Sleep Disorder Center [place] [phone] [place] [facility] [address] [place] [address] 07/22/2025 1:30 PM EST Appointment EDG PFT LAB [place] [address] 08/07/2025 12:45 PM EST Office Visit [facility] [address] [phone] Lety Kauffman MD [address] [place] [phone] 08/26/2025 2:00 PM EST Office Visit [facility] [address] [facility] [address] [place] [address] Paulino Olivas MD [address] [place] [address] documented as of this encounter Visit Diagnoses Not on filedocumented in this encounter
--- NOTE | 2025-07-08 11:30 | NM_ITS ---
APPROVED REPORT Exam: Nuclear Stress Test Indication: Chest pain, SOB, HTN, High cholesterol, Tobacco use, Family history, Dizziness, CAD, Hx of AL Patient Location: Outpatient Stress Tech: Cady Oseguera [place] Tech:Rosa Lemons, ARRT, RT (R)(N) Ht: 6 ft 0 in Wt: 250 lbs HR: 58 bpm BP: 145/99 mmHg BSA: 2.34 m2 TID: 0.87 History: Chest pain, SOB, HTN, High cholesterol, Tobacco use, Family history, Dizziness, CAD, Hx of AL Procedure: Patient received 0.4 mg of intravenous Lexiscan, resting heart rate 58 bpm, resting blood pressure 145/99 mmHg, with Lexiscan maximum heart rate achieved was 82 bpm which is % of the maximum predicted heart rate and blood pressure was 144/95 mmHg. With Lexiscan, patient denied any complaint of chest pain. Cardiac Stress and Resting SPECT Images: Cardiac Stress and Resting SPECT images were obtained using technetium 99m Myoview 32.0 mCi stress and 10.26 mCi at rest. Resting and stress imaging in supine and prone positions demonstrate a large sized, severe, fixed perfusion defect in the inferior LV wall. There is also a medium sized, moderate, partially reversible perfusion defect in the septal LV wall. Findings are suggestive of partial reversible ischemia. Gated imaging demonstrates mild reduction global LV systolic function. LVEF is calculated 46%. Conclusion: Large sized, severe, fixed perfusion defect in the inferior LV wall. There is also a medium sized, moderate, partially reversible perfusion defect in the septal LV wall. Findings are suggestive of partial reversible ischemia. Gated imaging demonstrates mild reduction global LV systolic function. LVEF is calculated 46%. Electronically signed by : Germaine Cruz MD 07/09/2025 13:03:22
[2025-07-08 12:50] VITALS: BP 145/99; PULSE 59; RESP 14
[2025-07-08] MEDS: ISOTOPE MYOVIEW (PER STUDY) 1 DOSE IV (13:32)
[2025-07-08] MEDS: SODIUM CHLORIDE 0.9% 10ML SYR (RAD ONLY) 10 ML IV ×2 (13:32)
== END 2025-07-08 23:59 | disposition home or self-care (01) ==
LOC: RAD 11:18
PROVIDERS: PCP Student in an Organized Health Care Education/Training Program; Visit Provider Physician Assistant
DX: I25.10 Atherosclerotic heart disease of native coronary artery without angina pectoris (principal); I11.9 Hypertensive heart disease without heart failure; E78.00 Pure hypercholesterolemia, unspecified; Z72.0 Tobacco use; I25.2 Old myocardial infarction; R94.39 Abnormal result of other cardiovascular function study
CPT/HCPCS: 78452; 93017; 93018; A9502; J2785

== ENCOUNTER 2025-07-09 15:18 | Outpatient (CLI) | payer MEDICARE, BC, SELFPAY ==
[2025-07-09 19:58] LABS: Chloride 101 mmol/L (98-107); Potassium 4.6 mmoL/L (3.5-5.1); Sodium 138 mmol/L (136-145)
[2025-07-09 20:01] LABS: Anion Gap 11.6 mEq/L (5-15); Blood Urea Nitrogen 16 mg/dl (9-20); Calcium 8.8 mg/dl (8.4-10.2); Carbon Dioxide 30 mmol/L (22.0-30.0); Creatinine,Serum 1.10 mg/dl (0.66-1.25); Estimated Glomerular Filt Rate 66 ml/min (>60); GFR (African American) 80 ML/MIN (>60); Glucose 94 mg/dl (74-100)
== END 2025-07-09 23:59 ==
LOC: LAB.DROPOF 07-11 09:06
PROVIDERS: PCP Student in an Organized Health Care Education/Training Program; Visit Provider Student in an Organized Health Care Education/Training Program
DX: I50.9 Heart failure, unspecified (principal)
CPT/HCPCS: 80048

== ENCOUNTER 2025-08-06 10:15 | Day surgery (SDC) | payer MEDICARE, BC, SELFPAY ==
[2025-08-06] VITALS (12 sets, daily range): BP systolic 126–170; BP diastolic 77–113; PULSE 55–93; RESP 18–20; TEMP 36.1–37; O2SAT 93–99; BMI 35.1
--- NOTE | 2025-08-06 07:13 | IR_ITS ---
APPROVED REPORT Patient Location: Outpatient Application Integrator: Arron Samano, RT (R) PROCEDURES Left heart catheterization Left ventriculogram Selective coronary angiogram Drug-eluting stent deployment to the ostial proximal mid and distal dominant right coronary artery in a contiguous manner Drug-eluting stent deployment to the mid LAD INDICATION Coronary artery disease, Angina pectoris, Abnormal Myoview Informed consent was obtained prior to the procedure. COMPLICATIONS NONE Estimated Blood Loss: LESS THAN 10 ML TECHNIQUE One percent lidocaine used to anesthetize the right anterior aspect of the wrist. The right radial artery was accessed via the Seldinger technique. A 6 Occitan sheath was placed in the right radial artery. 2.5 mg of Verapamil, 800 mcg of nitroglycerin, 1mg Lidocaine and 5000 U Heparin were given through the arterial sheath. The JL3 catheter was also used to perform left heart catheterization, left ventriculogram and selective coronary angiogram. At the end the diagnostic angiogram therapeutic heparin was administered giving a therapeutic ACT and the guide catheter was placed in the left main artery followed by Choice PT after support wire placed distally. A 3.5 x 18 mm [place] frontier stent was deployed at 22 akbar reducing the severe stenosis to 0%. TYRONE-3 flow was present before and after the procedure. Following this catheter was switched out and an AL 0.75 guide catheter was placed in the right coronary artery. This vessel was stented earlier in the procedure using the JL 3 guide catheter however there was not adequate support. Ultimately a GuideLiner was required along with a Choice PT extra-support wire and a 5 mm x 30 mm Jude frontier stent was deployed at 20 akbar in the ostial proximal right coronary artery. This was followed by placement of an additional 5 mm x 30 mm [place] frontier stent placed distal to the first and yet still overlapping and deployed at 20 kabar. A 4 mm x 38 mm [place] frontier stent was then placed distal to the second stent yet still overlapping and deployed distally at 20 akbar. A 5 mm x 12 mm balloon was then placed into the 4 mm stent and deployed at 20 akbar up and down the stent to post dilate. TYRONE-3 flow was present before and after the procedure. At the end the procedure the apparatus was removed the sheath was removed and hemostasis was achieved using TR banding patient was transferred to the postop putting in stable condition ANGIOGRAPHIC RESULTS The left main artery Normal The left anterior descending artery Has proximal 30% stenoses with a focal 80 to 90% concentric in-stent restenotic lesion. The remaining LAD is widely patent with mild luminal regularities The circumflex artery Is a nondominant and has proximal and mid vessel diffuse 30% stenosis The right coronary artery Is large dominant has a stent in the ostial proximal segment. Angiographically there was mild atheromatous plaque however stent could not be passed due to possible struts in the ostial segment.. There is an additional proximal concentric calcified 60 and 70% stenosis with a 50% mid vessel stenosis and a distal 70% eccentric stenosis. The remaining distal vessel is massively large gives rise to massively large posterior descending and posterior lateral branch The HENRY ventriculogram reveals Preserved at 55 to 60% The left ventricular end-diastolic pressure 25 mmHg IMPRESSION Severe disease in the mid LAD as described above Successful stenting of the mid LAD severe disease reduced to 0% with 1 drug-eluting stent Severe disease throughout the right coronary artery as described above Successful stenting of the ostial proximal mid and distal dominant right coronary artery severe disease reduced to 0% with 3 contiguous drug-eluting stents Preserved ejection fraction Elevated LVEDP PLAN 1. Dual antiplatelet therapy 2. Cardiac rehabilitation 3. Avoidance of tobacco products 4. Risk factor modification 5. LDL less than 55 to be achieved with high intensity statin Electronically signed by : Michael John MD 08/06/2025 14:16:11
[2025-08-06 10:43] LABS: Hematocrit 41.6 % (42.0-52.0); Hemoglobin 13.9 g/dL (14.1-18.0); Immature Granulocytes % 0.3 %; Mean Corpuscular HGB Conc 33.4 g/dL (31.8-35.4); Mean Corpuscular Hemoglobin 28.7 pg (27.0-31.2); Mean Corpuscular Volume 86.0 fl (80-94); Nucleated Red Blood Cells % 0 %; Platelet Count 150 K/mm3 (142-424); Red Blood Count 4.84 M/mm3 (4.60-6.20); Red Cell Distribution Width-SD 55.2 fL; White Blood Count 5.9 K/mm3 (4.8-10.8)
[2025-08-06 10:57] LABS: Anion Gap 6.2 mEq/L (5-15); Blood Urea Nitrogen 17 mg/dl (9-20); Calcium 9.4 mg/dl (8.4-10.2); Carbon Dioxide 29 mmol/L (22.0-30.0); Chloride 109 mmol/L (98-107); Creatinine Clearance Estimated 102 mL/min (50-200); Creatinine,Serum 1.10 mg/dl (0.66-1.25); Estimated Glomerular Filt Rate 66 ml/min (>60); GFR (African American) 80 ML/MIN (>60); Glucose 105 mg/dl (74-100); Potassium 4.2 mmoL/L (3.5-5.1); Sodium 140 mmol/L (136-145)
[2025-08-06] MEDS: NITROGLYCERIN 800MCG/8ML SYR (CATH LAB) 800 MCG IA (12:33)
[2025-08-06] MEDS: LIDOCAINE 1% 10ML MDV 10 ML IJ (12:34)
[2025-08-06] MEDS: HEPARIN 1,000 UNITS/ML 10ML VIAL (CATH LAB) 5000 UNIT IV ×3 (12:34→14:06)
[2025-08-06] MEDS: HEPARIN 1,000 UNITS/500ML NS (CATH LAB) 3000 UNIT IV (12:34)
[2025-08-06] MEDS: VERAPAMIL 2.5MG/ML 2ML VIAL 2.5 MG IV (12:34)
[2025-08-06] MEDS: 0.9 % SODIUM CHLORIDE 500 ML 999 ML IV (12:37)
[2025-08-06] MEDS: MIDAZOLAM HCL 1MG/ML 5ML VIAL 1 MG IV (13:52)
[2025-08-06] MEDS: FENTANYL 100MCG/2ML VIAL 50 MCG IV (13:52)
[2025-08-06] MEDS: IOPAMIDOL-370 (76%);100ML BOTTLE 120 ML IV (15:10)
[2025-08-06 15:12] LABS: CATHL Activated Clotting Time 238 SEC (74-125)
[2025-08-06] MEDS: CALCIUM CARBONATE 500MG CHEWTAB 500 MG PO (15:44)
== END 2025-08-06 17:11 | disposition home or self-care (01) ==
PROVIDERS: PCP Student in an Organized Health Care Education/Training Program; Visit Provider Internal Medicine
PROC: 4A023N7 Measurement of Cardiac Sampling and Pressure, Left Heart, Percutaneous Approach (ICD-10-PCS; CPT 93452; principal; 2025-08-06 11:15)
DX: I25.119 Atherosclerotic heart disease of native coronary artery with unspecified angina pectoris (principal); R93.1 Abnormal findings on diagnostic imaging of heart and coronary circulation; R07.89 Other chest pain; R06.02 Shortness of breath; I48.91 Unspecified atrial fibrillation; R94.31 Abnormal electrocardiogram [ECG] [EKG]; I10 Essential (primary) hypertension; E78.2 Mixed hyperlipidemia; I71.43 Infrarenal abdominal aortic aneurysm, without rupture; I71.20 Thoracic aortic aneurysm, without rupture, unspecified; Z79.3 Long term (current) use of hormonal contraceptives; Z79.82 Long term (current) use of aspirin; Z79.01 Long term (current) use of anticoagulants; Z79.02 Long term (current) use of antithrombotics/antiplatelets; F17.210 Nicotine dependence, cigarettes, uncomplicated; Z79.899 Other long term (current) drug therapy; Z82.49 Family history of ischemic heart disease and other diseases of the circulatory system
CPT/HCPCS: 36415; 80048; 85025; 85347; 92928; 93458; 99152; 99153; C1725; C1760; C1769; C1874; C1887; C9600; J1200; J1644; J2003; J3010; J7040; Q9967

== ENCOUNTER 2025-08-08 14:38 | Outpatient (CLI) | payer MEDICARE, BC, SELFPAY ==
--- OUTSIDE RECORDS SUMMARY | 2025-06-12 13:00 | XMS_ITS | Encounter Summary ---
Author Organization [place] [address] Care Team Providers Care Station Master Name Role Phone Unavailable Primary Care Provider Unavailabl e Reason for Referral * Sleep Center (Routine) - Authorized Specialty Diagnoses / Procedures Referred By Contac t Referred To Contact Diagnoses Snoring PAF (paroxysmal atrial fibrillation) (HCC) Essential hypertension Coronary artery disease involving [place] heart without angina pectoris, unspecified vessel or lesion type Mood disorder Obesity (BMI 30.0-34.9) Procedures POLYSOMNOGRAPHY 4 OR MORE PARAMETERS POLYSOMNOGRAPHY 4 OR MORE PARAMETERS [place] POLYSOM ANY AGE SLEEP STAGE 1-3 ADDL YUDITH ATTND OH POLYSOM 6/>YRS SLEEP 4/> ADDL YUDITH ATTND OH ELECTROENCEPHALOGRAM EXTEND MONITORING 41-60 MIN OH POLYSOM 6/>YRS SLEEP W/CPAP 4/> ADDL YUDITH ATTND OH SLEEP STD REC VNTJ RESPIR ECG/HRT RATE&O2 ATTN Lety Kauffman MD [address] [place] [address] Phone: tel: fax: [facility] [address] [address] Phone: tel: Referral ID Status Reason Start Date Expiration Date V isits Requested Visits Authorized [id number] Authorized 06/12/2025 06/12/2026 1 1 Encounter Details Date Type Department Care Team (Late st Contact Info) Description 06/12/2025 2:00 PM EDT Office Visit [facility] [address] [address] Lety Kauffman MD [address] [place] [address] Snoring (Primary Dx); PAF (paroxysmal atrial fibrillation) (HCC); Essential hypertension; Coronary artery disease involving [place] heart without angina pectoris, unspecified vessel or lesion type; Mood disorder; Obesity (BMI 30.0-34.9) Social History Tobacco Use Types Packs/Day Years Used Date Smoking Tobacco: Never Smokeless Tobacco: Never Alcohol Use Standard Drinks/Week Comments Never 0 (1 standard drink = 0.6 oz pur e alcohol) Sexually Active Control Partners Comments Never Sex and Gender Information Value Date Recorded Sex Assigned at Not on file Legal Sex Male 11:20 AM EDT Gender Identity Not on file Sexual Orientation Not on file documented as of this encounter Ordered Prescriptions Prescription Sig Dispense Quantity Refills Last Filled Start Date End Date mirtazapine (REMERON) 15 mg Oral Tablet Take 1 Tablet by mouth nightly for 1 day. 1 Tablet 06/12/2025 documented in this encounter H&P Notes * Lety Kauffman MD - 06/12/2025 2:00 PM EDT Images from the original note were not included. New Patient Initial Visit PCP Referring physician : No primary care provider on file. 06/12/2025 Lety Kauffman MD MEDICAL DECISION MAKING Sleep Medicine Diagnoses 1. Snoring 2. PAF (paroxysmal atrial fibrillation) (HCC) 3. Essential hypertension 4. Coronary artery disease involving [place] heart without angina pectoris, unspecified vessel or lesion type 5. Mood disorder 6. Obesity (BMI 30.0-34.9) Will need to get a Sleep study to evaluate for AVI . Based upon the comprehensive sleep disorder evaluation below I recommend a facility-based sleep center Polysomnogram for high pre-test probability of moderate to severe AVI Requesting a pill to help him sleep at the sleep center. 1 tab of Mirtazapine prescribed. Obesity Weight and BMI in context of Sleep disordered breathing reviewed Weight loss will help with parameters though complete resolution is doubtful Recommend wt loss to normal BMI HTN 138/84 Treatment of obstructive sleep apnea is important part of management of this disorder. Current meds reviewed today - Risks of untreated obstructive sleep apnea include stroke, dementia, heart disease, worsened blood pressure and diabetic control, weight gain, cardiac arrhythmia, sudden , etc. - No drowsy driving/operating machinery when sleepy. - Avoid alcohol and benzodiazepine sedatives for 4 hours before bedtime - Optimize sleep habits and duration HISTORY of PRESENT ILLNESS Chief Complaint Nir Johnson is a 69 y.o. male here today for evaluation of possible AVI . 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 Pertinent positives include: Excessive Sleepiness No Sleep Apnea Snore - Y Episodes of apnea/ choking/gasping - unsure Medical Comorbidity A fib HTN CAD Sleep Disorder Comorbidity no evident restless legs, PLM, or auxiliary symptoms of narcolepsy Sleep Habits Usual bedtime: midnight Usual wake up time: 7-8 AM Insomnia Time to falling asleep: 5-10 mnts Number and duration of awakenings during sleep: 0 Occupation: Retired Caffeinated beverages/ day : 2 Alcohol prior to bed: n Marijuana: n Motor Vehicle Accidents related to sleepiness: n PRIOR SLEEP TESTING: None Past Medical History: Diagnosis Date CAD (coronary artery disease) 05/20/2025 Essential hypertension 05/20/2025 Hyperlipidemia 05/20/2025 PAF (paroxysmal atrial fibrillation) (HCC) 05/20/2025 No past surgical history on file. Allergies Allergen Reactions Adhesive Rash Current Meds Current Outpatient Medications Medication Sig Dispense Refill [...] No current facility-administered medications for this visit. No family history on file. Social History Social History Tobacco Use Smoking status: Never Smokeless tobacco: Never Substance Use Topics Alcohol use: Never EXAMINATION Vital Signs: 6 Ft, 250 lbs BMI 33.9 (AVI is more likely if BMI > 30) BP 138/84 P R Modified Mallampati Class 2 (AVI is more likely if > 2) Constitutional Constitutional : comfortable , no distress Pulmonary Normal Work of breathing Cardio Irreg rhythm , rate controlled DATA REVIEWED (I have reviewed all data listed below) [place] Sleepiness Scale 11 > 10 indicates Excessive Daytime Sleepiness Medical Comorbidity Pulmonary Functions Testing Results: No results found for: FEV1 , FVC , HYB3UVG , TLC , DLCO (FEV1 < 60% predicted = moderate or severe pulmonary disease) No results found for this or any previous visit. ABG No results found for: PCO2 , HCO3 (pCO2 > 45 or HCO3 > 29 indicates hypoventilation) Echocardiogram No results found for this or any previous visit. Other Labs No results found for: TSH , TSHREFLEX , GLU , BUN , CREATININE , NA , K , CL , CO2 , ALT , AST , ALKPHOS No results found for: WBC , HGB , HCT , PLT , [id number] , FOLATE , FERRITIN documented in this encounter Plan of Treatment Upcoming Encounters Date Type Department Care Team (Late st Contact Info) Description 08/26/2025 2:00 PM EST Office Visit [facility] [address] [place] [address] [address] [place] [address] Paulino Olivas MD [address] [place] [address] [place] [address] 01/19/2026 1:30 PM EDT Office Visit [facility] [place] [address] [place] [address] Timoteo Latoya M, CUT AND COVER LINE WORKER [address] [facility] [address] [place] [address] Scheduled Orders Name Type Priority Associated Diagnoses Orde r Schedule POLYSOMNOGRAPHY 4 OR MORE PARAMETERS Sleep Center Routine Snoring PAF (paroxysmal atrial fibrillation) (HCC) Essential hypertension Coronary artery disease involving [place] heart without angina pectoris, unspecified vessel or lesion type Mood disorder Obesity (BMI 30.0-34.9) 1 Occurrences starting 06/12/2025 until 06/12/2026 documented as of this encounter Visit Diagnoses Diagnosis Snoring- Primary Other dyspnea and respiratory abnormality PAF (paroxysmal atrial fibrillation) (HCC) Atrial fibrillation Essential hypertension Unspecified essential hypertension Coronary artery disease involving [place] heart without angina pectoris, unspecified vessel or lesion type Mood disorder Unspecified episodic mood disorder Obesity (BMI 30.0-34.9) Obesity, unspecified documented in this encounter
--- OUTSIDE RECORDS SUMMARY | 2025-06-19 11:30 | XMS_ITS | Encounter Summary ---
Author Organization [place] [address] Care Team Providers Care Color Print Inspector Name Role Phone Unavailable Primary Care Provider Unavailabl e Reason for Referral * Holter Monitor (Routine) - Authorization Not Needed Specialty Diagnoses / Procedures Referred By Johnac germaine Referred To Contact Radiology Diagnoses PAF (paroxysmal atrial fibrillation) (HCC) Procedures HM HOLTER MONITOR RECORDING AND ANALYSIS Paulino Olivas MD [address] [place] [address] [place] [address] Phone: tel: fax: Referral ID Status Reason Start Date Expiration Date Visits Requested Visits Authorized [id number] Authorization Not Needed 05/20/2025 05/20/2027 1 1 Reason for Visit * Holter Monitor (Routine) - Authorization Not Needed Specialty Diagnoses / Procedures Referred By Jackelyn herron Referred To Contact Radiology Diagnoses PAF (paroxysmal atrial fibrillation) (HCC) Procedures HM HOLTER MONITOR RECORDING AND ANALYSIS Paulino Olivas MD [address] [place] [address] [place] [address] Phone: tel: fax: Referral ID Status Reason Start Date Expiration Date Visits Requested Visits Authorized [id number] Authorization Not Needed 05/20/2025 05/20/2027 1 1 Encounter Details Date Type Department Care Team (Latest Contact Info) Description 06/19/2025 12:30 PM EDT - 06/19/2025 12:51 PM EDT Hospital Encounter EDG HOLTER MONITOR [facility] [address] [place] [address] Paulino Olivas MD [address] [place] [address] [address] [place] [place] [address] PAF (paroxysmal atrial fibrillation) ([facility]) Discharge Disposition: Home or Self Care Social History Tobacco Use Types Packs/Day Years [...] on file documented as of this encounter Medications at Time of Discharge atorvastatin (LIPITOR) 80 mg Oral Tablet Take [...] Take 20 mg by mouth daily. lisinopriL (PRINIVIL;ZESTRIL ) 20 mg Oral [...] Capsule Take 0.4 mg by mouth daily. documented as of this encounter Discharge Disposition Disposition Code Departure Means Destination Home or Self Care documented in this encounter Plan of Treatment Upcoming Encounters Date Type Department Care Team (Late st Contact Info) Description 08/26/2025 2:00 PM EST Office Visit [facility] [address] [facility] [address] [place] [address] Paulino Olivas MD [address] [facility] [address] [place], [place] [address] 01/19/2026 1:30 PM EDT Office Visit [facility] [place] [address] [place] [address] Timoteo December, TRANSCRIPTION MANAGER [address] [place] [address] [place] [address] documented as of this encounter Procedures Procedure Name Priority Date/Time Associated Diagnosis Comments HOLTER MONITOR RECORDING AND ANALYSIS Routine 06/19/2025 2:13 PM EDT PAF (paroxysmal atrial fibrillation) (HCC) documented in this encounter Results * HOLTER MONITOR RECORDING AND ANALYSIS (06/19/2025 2:13 PM EDT) Anatomical Region Laterality Modality Holter/Event Mon itoring 06/25/2025 8:42 AM EDT Impressions 06/25/2025 10:[address] [facility] [place] Test Date: 2025-06-25 Pat Name: NIR JOHNSON Department: DEPID Room: Gender: Male Chairman & Ceo: : 1955 Requested By: PAULINO MATOS Order Number: [id number] Antonio MD: Adriano Harley MD Interpretive Statements Drafter Landscape Date: 06/19/2025 Referring Provider: Dr. Paulino Olivas MD Patient was monitored for 48 [...] %. The study included an Atrial Fibrillation/Flutter [place] of 100 % with 1 % in RVR and 4 % in SVR. The longest episode was 1d 20h 40m 56.8s, 06/19 14:17:19, and the Fastest episode was 145 bpm, 06/19 14:17:19. There was 1 Patient Trigger. Electronically Signed On 06-25-2025 10:23:36 EDT by Adriano Harley MD Narrative Procedure Note Adriano Harley MD - 06/25/[address] [place] Test Date: 2025-06-25 Pat Name: NIR JOHNSON Department: DEPID Room: Gender: Male Chairman & Ceo: : 1955 Requested By: PAULINO LAROSE Order Number: [id number] Reading MD: Adriano Harley MD Interpretive Statements Drafter Landscape Date: 06/19/2025 Referring Provider: Dr. Paulino Olivas MD Patient was monitored for 48 hours. INDICATIONS: I48.0 Paroxysmal atrial fibrillation CONCLUSION: The predominant rhythm was Atrial Fibrillation/Flutter. The Maximum Heart Rate recorded was 145 bpm, 06/19 17:40:25, theMinimum Heart Rate recorded was 37 bpm, 06/20 15:06:10, and the Average HeartRate was 70 bpm. There were 494 VE beats with a burden of <1 %. The study included an Atrial Fibrillation/Flutter [place] of 100 % with 1% in RVR and 4 % in SVR. The longest episode was 1d 20h 40m 56.8s, 06/19 14:17:19, and the Fastest episode was 145 bpm, 06/19 14:17:19. There was 1 Patient Trigger. Electronically Signed On 06-25-2025 10:23:36 EDT by Adriano Harley MD us Paulino Olivas MD IMG HOLTER MONITOR ORDER PINA Final Result documented in this encounter Visit Diagnoses Diagnosis PAF (paroxysmal atrial fibrillation) (HCC) Atrial fibrillation documented in this encounter
--- OUTSIDE RECORDS SUMMARY | 2025-06-19 11:52 | XMS_ITS | Encounter Summary ---
Author Organization [facility] [place] [address] Care Team Providers Care Pharmacovigilance Specialist Name Role Phone Unavailable Primary Care Provider Unavailabl e Reason for Referral * Echo (Routine) - Authorization Not Needed Specialty Diagnoses / Procedures Referred By Contac t Referred To Contact Radiology Diagnoses PAF (paroxysmal atrial fibrillation) (HCC) Procedures EC ECHOCARDIOGRAM COMPLETE W DOPPLER AND COLOR FLOW MAPPING Paulino Olivas MD [address] [place] [address] [place] [address] Phone: tel: fax: Referral ID Status Reason Start Date Expiration Date Visits Requested Visits Authorized [id number] Authorization Not Needed 05/20/2025 05/20/2027 1 1 Reason for Visit * Echo (Routine) - Authorization Not Needed Specialty Diagnoses / Procedures Referred By Contac t Referred To Contact Radiology Diagnoses PAF (paroxysmal atrial fibrillation) (HCC) Procedures EC ECHOCARDIOGRAM COMPLETE W DOPPLER AND COLOR FLOW MAPPING Paulino Olivas MD [address] [place] [address] [place] [address] Phone: tel: fax: Referral ID Status Reason Start Date Expiration Date Visits Requested Visits Authorized [id number] Authorization Not Needed 05/20/2025 05/20/2027 1 1 Encounter Details Date Type Department Care Team (Latest Contact Info) Description 06/19/2025 12:52 PM EDT - 06/19/2025 11:59 PM EDT Hospital Encounter EDG ECHO [facility] [address] [place] [place] [address] Paulino Olivas MD [address] [place] [address] [address] [place] [place] [address] PAF (paroxysmal atrial fibrillation) ([facility]) Discharge Disposition: Home or Self Care Social [...] Office Visit [facility] [address] [facility] [address] [place] [address] Paulino Olivas MD [address] [place] [address] 01/19/2026 1:30 PM EDT Office Visit [facility] H[facility] [place] [address] [place] [address] Timoteo Latoya M, OPHTHALMIC ASSISTANT [address] [place] [address] [place] [address] documented as of this encounter Procedures Procedure Name Priority Date/Time Associated Diagnosis Comments EC ECHOCARDIOGRAM COMPLETE W DOPPLER AND COLOR FLOW MAPPING Routine 06/19/2025 2:25 PM EDT PAF (paroxysmal atrial fibrillation) (HCC) documented in this encounter Results * EC [...] regurgitation. * There is no pericardial effusion. Paulino Olivas MD IMG ECHO ORDERABLES Marly l Result documented in this encounter Visit Diagnoses Diagnosis PAF (paroxysmal atrial fibrillation) (HCC) Atrial fibrillation documented in this encounter
--- OUTSIDE RECORDS SUMMARY | 2025-07-21 14:30 | XMS_ITS | Encounter Summary ---
Author Organization [place] [address] Care Team Providers Care [employer] Experience Strategy Name Role Phone Unavailable Primary Care Provider Unavailabl e Reason for Referral * Vascular Imaging (Routine) - Authorization Not Needed Specialty Diagnoses / Procedures Referred By Contac t Referred To Contact Radiology Diagnoses PAF (paroxysmal atrial fibrillation) (HCC) Leg swelling Abdominal aortic aneurysm (AAA) without rupture, unspecified part Tobacco abuse Procedures [facility] AAA SCREENING EXAM MEDICARE Enoc Rod MD [address] [place] [address] [place] [address] Phone: tel: fax: Referral ID Status Reason Start Date Expiration Date Visits Requested Visits Authorized [id number] Authorization Not Needed 07/21/2025 07/21/2027 1 1 * Consultation (Routine) - Authorization Not Needed Specialty Diagnoses / Procedures Referred By Contac t Referred To Contact Vascular Surgery Diagnoses PAF (paroxysmal atrial fibrillation) (HCC) Leg swelling Procedures [place] OFFICE/OUTPATIENT NEW MODERATE MDM 45 MINUTES Enoc Rod MD [address] [place] [address] [place] [address] Phone: tel: fax: Kameron Ríos MD [address] [place] [address] Phone: tel: fax: Referral ID Status Reason Start Date Expiration Date Visits Requested Visits Authorized [id number] Authorization Not Needed 07/21/2025 07/21/2026 99 99 Reason for Visit * Reason Comments New Patient Emergency referral a bn echo and gxt, completed at [facility] would like second opinion on angiogram, not comfortable with past provider in [facility], dizziness when standing * Consultation (Emergency) - Authorization Not Needed Specialty Diagnoses / Procedures Referred By Contac t Referred To Contact Cardiology Diagnoses Abnormal stress test Procedures [place] OFFICE/OUTPATIENT NEW MODERATE MDM 45 MINUTES Paulino Olivas MD [address] [place] [address] Phone: tel: fax: Referral ID Status Reason Start Date Expiration Date Visits Requested Visits Authorized [id number] Authorization Not Needed Specialty Services Required 07/15/2007/15/2026 99 99 Encounter Details Date Type Department Care Team (Late st Contact Info) Description 07/21/2025 2:30 PM EST Office Visit [facility] [address] [address] Enoc Rod MD [address] [place] [phone] PAF (paroxysmal atrial fibrillation) (HCC) (Primary Dx); Leg swelling; Abdominal aortic aneurysm (AAA) without rupture, unspecified part; Tobacco abuse Social History Tobacco Use Types Packs/Day Years [...] Sign Reading Time Taken Comments Blood Pressure 130/80 07/21/2025 2:20 PM EST Pulse 66 07/21/2025 2:20 PM EST Temperature - - Respiratory Rate - - Oxygen Saturation 98% 07/21/2025 2:20 PM EST Inhaled Oxygen Concentration - - Weight 119.5 kg (263 lb 6.4 oz) 07/21/2025 2:20 PM EST Height 182.9 cm (6') 07/21/2025 2:20 PM EST Body Mass Index 35.72 07/21/2025 2:20 PM EST documented in this encounter Ordered Prescriptions Prescription Sig Dispense Quantity Refills Last Filled Start Date End Date aspirin 81 mg Oral Tablet, Delayed Release (E.C.) Take 1 Tablet by mouth daily. 30 Tablet 11 07/21/2025 documented in this encounter Progress Notes * Enoc Rod MD - 07/21/2025 2:30 PM EST Subjective: Patient ID: Nir Johnson is a 70 y.o. male. Chief Complaint Patient presents with New Patient Emergency referral abn echo and gxt, completed at [facility] would like second opinion on angiogram, not comfortable with past provider in [facility], dizziness when standing HPI CC: ASHD, abn Echo. Mild twinge of cp for second. Chronic sob Chronic edema, wrapping Was getting blisters, wounds. Their chronic cardiac conditions are: Problem List Cardiology Problems CAD (coronary artery disease) Essential hypertension Hyperlipidemia PAF (paroxysmal atrial fibrillation) (HCC) Tobacco Use History[1] Current Medications[2] Past Medical History[3] Surgical History[4] Family History[5] Social History[6] Review of Systems Constitution: Negative for chills, fever and night sweats. Cardiovascular: Negative for near-syncope, palpitations and syncope. Respiratory: Negative for cough. Skin: Negative for itching. Musculoskeletal: Negative for neck pain. Gastrointestinal: Negative for diarrhea, jaundice and nausea. Genitourinary: Negative for hematuria. Neurological: . Negative for light-headedness and seizures. Allergic/Immunologic: All other systems reviewed and are negative. Objective: Patient Vitals for the past 24 hrs: Pulse BP 07/21/25 1420 66 130/80 Body mass index is 35.72 kg/m??. PHYSICAL EXAM: Constitutional: appears in no distress Eyes: no icterus Neck: Normal range of motion. Neck supple. No JVD present Cardiovascular: s1, s2 irr. Pulmonary/Chest: Breath sounds decreased. + wheezes Abdominal: Soft. Bowel sounds are normal. Musculoskeletal: He exhibits +2 edema. Neurological: is alert and oriented to person, place, and time. Skin: Skin is warm and dry. Psychiatry: mood and affect appropriate Results for orders placed or performed in visit on 07/21/25 POCT EKG Impression Afib with CVR, no dynamic ST abnormalities. Lab Review No results found for: WBC , HGB , PLT No results found for: NA , K , BUN , CREATININE , GLU , ALT , ALKPHOS No results found for: TSH No results found for: CHOLESTEROL , HDL , LDLCALC , TRIG No results found for: INR , PROTIME Assessment and Plan: ASHD Per records Inferior STEMI. Cath in [facility] in 2020- Successful angioplasty and drug-eluting stent of the mid RCA. 4. Patent stent in the first obtuse marginal. 5. Thrombosed aneurysm of the proximal RCA. Twinges of pain for a few seconds. No severe cp. Stress test in Jun 2025 in [facility]- Large, severe fixed inf wall defect. Also a medium size, moderate, partially reversible defect in the septal LV wall. Findings suggestive of partial reversible ischemia He will follow up with [employer] for further recommendations. 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 Chronic sob on walking Tobacco abuse 5 cigs a day. Counseled. Afib Persistent CVR On Xarelto. Sees Dr. Olivas, no ablation. Echo in Jun 2025 by my interpretation, EF borderline 50%, mod MR. COPD Wheezing Lung disease. Chronic LE and wrapped. On lasix Refer to Vascular. Dyslipidemia On Lipitor Labs per pcp H/o AAA Check ultrasound. Moved from [place] Sees a PCP in [facility] [1] Social History Tobacco Use Smoking Status Never Smokeless Tobacco Never [2] Current Outpatient Medications Medication Sig Dispense Refill atorvastatin (LIPITOR) 80 mg Oral Tablet Take 80 mg by mouth daily. DULoxetine (CYMBALTA) 30 [...] Capsule Take 0.4 mg by mouth daily. buPROPion (WELLBUTRIN SR) 150 mg Oral tablet sustained-release 12 hr Take 150 mg by mouth daily. (Patient not taking: Reported on 07/21/2025) No current facility-administered medications for this visit. [3] Past Medical History: Diagnosis Date CAD (coronary artery disease) 05/20/2025 Essential hypertension 05/20/2025 Hyperlipidemia 05/20/2025 PAF (paroxysmal atrial fibrillation) (HCC) 05/20/2025 [4] History reviewed. No pertinent surgical history. [5] History reviewed. No pertinent family history. [6] Social History Socioeconomic History Marital status: Spouse name: None Number of children: None Years of education: None Highest education level: None Tobacco Use Smoking status: Never Smokeless tobacco: Never Vaping Use Vaping status: Never Used Substance and Sexual Activity Alcohol use: Never Drug use: Never Sexual activity: Never Social Drivers of Health Financial Resource Strain: High Risk (09/25/2023) Received from [facility] Overall Financial Resource Strain (CARDIA) Difficulty of Paying Living Expenses: Hard Food Insecurity: No Food Insecurity (03/18/2025) Received from [facility] Hunger Vital Sign Within the past 12 months, you worried that your food would run out before you got the money to buymore.: Never true Within the past 12 months, the food you bought just didn't last and you didn't have money to get more.: Never true Transportation Needs: No Transportation Needs (03/18/2025) Received from [facility] PRAPARE - Transportation Lack of Transportation (Medical): No Lack of Transportation (Non-Medical): No Physical Activity: Insufficiently Active (09/25/2023) Received from [facility] Exercise Vital Sign On average, how many days per week do you engage in moderate to strenuous exercise (like a brisk walk)?: 1 day On average, how many minutes do you engage in exercise at this level?: 10 min Stress: Stress Concern Present (09/25/2023) Received from [facility] of Occupational Health - Occupational Stress Questionnaire Feeling of Stress : Very much Social Connections: Unknown (03/18/2025) Received from [facility] Social Connection and Isolation Panel In a typical week, how many times do you talk on the phone with family, friends, or neighbors?: More than three times a week Are you , , , , never , or living with a partner?: Intimate Partner Violence: Not At Risk (03/18/2025) [facility] Humiliation, Afraid, Rape, and Kick questionnaire Within the last year, have you been afraid of your partner or ex-partner?: No Within the last year, have you been humiliated or emotionally abused in other ways by your partner or ex-partner?: No Within the last year, have you been kicked, hit, slapped, or otherwise physically hurt by your partner or ex-partner?: No Within the last year, have you been raped or forced to have any kind of sexual activity by your partner or ex-partner?: No Housing Stability: Low Risk (03/18/2025) [facility] Housing Stability Vital Sign In the last 12 months, was there a time when you were not able to pay the mortgage or rent on time?: No In the past 12 months, how many times have you moved where you were living?: 1 At any time in the past 12 months, were you homeless or living in a senior care (including now)?: No documented in this encounter Miscellaneous Notes * Patient Instructions - Marleen Dickey MA - 07/21/2025 2:30 PM EST Please call [phone] to schedule your vascular ultrasound(s) You may receive a survey via phone, mail or e-mail, regarding your visit today. Your feedback is important to us. We ask that you please take a few minutes to fill out the survey. You were assisted today by Enoc Rod MD and Marleen Dickey MA. Thank You for choosing [facility]. We sincerely thank you for the opportunity to be a part of your care. documented in this encounter Plan of Treatment Upcoming Encounters Date Type Department Care Team (Late st Contact Info) Description 08/26/2025 2:00 PM EST Office Visit [facility] [address] [place] [address] [address] [place] [address] Paulino Olivas MD [address] [place] [address] [place] [address] 01/19/2026 1:30 PM EDT Office [place] [address] Latoya Mahmood , MANAGER CONFIGURATION [address] [place] [address] [place] [address] Scheduled Referrals Name Type Priority Associated Diagnoses Orde r Schedule AMB REFERRAL TO VASCULAR SURGERY Outpatient Referral Routine PAF (paroxysmal atrial fibrillation) (HCC) Leg swelling Ordered: 07/21/2025 documented as of this encounter Procedures Procedure Name Priority Date/Time Associated Diagnosis Comments POCT EKG Routine 07/21/2025 2:32 PM EST PAF (paroxysmal atrial fibrillation) (HCC) documented in this encounter Results * [place] [facility] AAA SCREENING EXAM MEDICARE (07/23/2025 11:13 AM EST) Anatomical Region Laterality Modality Abdomen Vascular Imaging 07/23/2025 10:3 5 AM EST Impressions 07/24/2025 5:46 AM EST Conclusions * Heterogenous plaque is noted in the mid to distal abdominal aorta. * A large (diameter 5.0-6.0 cm) abdominal aortic aneurysm is noted with a maximal diameter of 5.6 cm x 5.0 cm. * The right and left common iliac arteries are ectatic. The right common iliac artery measures 1.7 cm x 1.5 cm, and the left common iliac artery measures 1.5 cm x 1.4 cm. * The bilateral renal arteries and the celiac artery are not visualized. Narrative Procedure Note Kmaeron Ríos MD - 07/24/2025 IMPRESSION Conclusions * Heterogenous plaque is noted in the mid to distal abdominal aorta. * A large (diameter 5.0-6.0 cm) abdominal aortic aneurysm is noted witha maximal diameter of 5.6 cm x 5.0 cm. * The right and left common iliac arteries are ectatic. The rightcommon iliac artery measures 1.7 cm x 1.5 cm, and the left common iliac artery measures 1.5 cm x 1.4 cm. * The bilateral renal arteries and the celiac artery are notvisualized. us Enoc Rod MD IMG VASCULAR ORDERABLES Final Re sult * (ABNORMAL) POCT EKG (07/21/2025 2:32 PM EST) 07/21/2025 2:32 PM EST Impressions [facility] - 07/21/2025 2:32 PM EST Afib with CVR, no dynamic ST abnormalities. us Enoc Rod MD POINT OF CARE CARDIOLOGY Final R esult [facility] documented in this encounter Visit Diagnoses Diagnosis PAF (paroxysmal atrial fibrillation) (HCC)- Primary Atrial fibrillation Leg swelling Swelling of limb Abdominal aortic aneurysm (AAA) without rupture, unspecified part Tobacco abuse Tobacco use disorder PAF (paroxysmal atrial fibrillation) (HCC) Atrial fibrillation Leg swelling Swelling of limb Abdominal aortic aneurysm (AAA) without rupture, unspecified part Tobacco abuse Tobacco use disorder documented in this encounter
--- OUTSIDE RECORDS SUMMARY | 2025-07-22 13:30 | XMS_ITS | Encounter Summary ---
Author Organization [place] [address] Care Team Providers Care Casting Director Name Role Phone Unavailable Primary Care Provider Unavailabl e Reason for Referral * PFT (Routine) - Pending Review Specialty Diagnoses / Procedures Referred By Jackelyn herron Referred To Contact Diagnoses PAF (paroxysmal atrial fibrillation) (HCC) Procedures PULMONARY FUNCTION TEST Paulino Olivas MD [address] [place] [address] [place] [address] Phone: tel: fax: Referral ID Status Reason Start Date Expiration Date V isits Requested Visits Authorized [id number] Pending Review 05/20/2025 05/20/2026 1 1 Reason for Visit * PFT (Routine) - Pending Review Specialty Diagnoses / Procedures Referred By Jackelyn herron Referred To Contact Diagnoses PAF (paroxysmal atrial fibrillation) (HCC) Procedures PULMONARY FUNCTION TEST Paulino Olivas MD [address] [place] [address] [place] [address] Phone: tel: fax: Referral ID Status Reason Start Date Expiration Date V isits Requested Visits Authorized [id number] Pending Review 05/20/2025 05/20/2026 1 1 Encounter Details Date Type Department Care Team (Latest Contact Info) Description 07/22/2025 1:30 PM EST - 07/22/2025 11:59 PM EST Hospital Encounter EDG PFT LAB [facility] [address] [place] [id number] PAF (paroxysmal atrial fibrillation) (HCC) Discharge Disposition: Home or Self Care Social [...] this encounter Medications at Time of Discharge aspirin 81 mg Oral Tablet, Delayed Release (E.C.) Take 1 Tablet by mouth daily. 30 Tablet 11 07/21/2025 atorvastatin (LIPITOR) 80 mg Oral Tablet Take [...] Office Visit [facility] [address] [address] Paulino Olivas MD [address] [facility] [place] [address] 01/19/2026 1:30 PM EDT Office Visit [facility] [address] [address] Latoya Mahmood M, COMMISSIONER OF CONCILIATION [address] [place] [address] [place] [address] documented as of this encounter Procedures Procedure Name Priority Date/Time Associated Diagnosis Comments PULMONARY FUNCTION TEST Routine 07/22/2025 1:46 PM EST PAF (paroxysmal atrial fibrillation) (HCC) documented in this encounter Results * (ABNORMAL) PULMONARY FUNCTION TEST (07/22/2025 1:46 PM EST) FVC_PRE 3.85 3.11 - 5.28 L 07/23/2025 12:14 PM EST [facility] FEV1_PRE 2.84 2.29 - 3.94 L 07/23/2025 12:14 PM EST [facility] FEV1/FVC_PRE 73.86 63.03 - 86.92 % 07/23/2025 12:14 PM EST [facility] Hb_PRE 14.30 g(Hb)/dL 07/23/2025 12:14 PM EST [facility] ERV_PRE 0.33(L) 0.41 - 2.63 L 07/23/2025 12:14 PM EST [facility] RV_PRE 2.90 1.56 - 3.94 L 07/23/2025 12:14 PM EST [facility] RV%TLC_PRE 40.21 24.34 - 47.44 % 07/23/2025 12:14 PM EST [facility] TLC_PRE 7.21 5.83 - 8.95 L 07/23/2025 12:14 PM EST [facility] FVC_Pre%REF 92 % 07/23/2025 12:14 PM EST [facility] FEV1_Pre%REF 90 % 07/23/2025 12:14 PM EST [facility] RV_Pre%REF 110 % 07/23/2025 12:14 PM EST [facility] TLC_Pre%REF 98 % 07/23/2025 12:14 PM EST [facility] ERV_Pre%REF 26 % 07/23/2025 12:14 PM EST [facility] 07/22/2025 1:46 PM EST Impressions [facility] - 07/23/2025 12:14 PM EST Normal spirometry and low ERV due to obesity Mildy decrease diffusion capacity with possible Pulmonary vascular disorder us Paulino Olivas MD PFT ORDERABLES Final Re sult [facility] [address] [place] [address] documented in this encounter Visit Diagnoses Diagnosis PAF (paroxysmal atrial fibrillation) (HCC) Atrial fibrillation documented in this encounter
--- OUTSIDE RECORDS SUMMARY | 2025-07-23 10:22 | XMS_ITS | Encounter Summary ---
Author Organization [place] [address] Care Team Providers Care Filling Hand Name Role Phone Unavailable Primary Care Provider Unavailabl e Reason for Referral * Vascular Imaging (Routine) - Authorization Not Needed Specialty Diagnoses / Procedures Referred By Contac t Referred To Contact Radiology Diagnoses PAF (paroxysmal atrial fibrillation) (HCC) Leg swelling Abdominal aortic aneurysm (AAA) without rupture, unspecified part Tobacco abuse Procedures [facility] AAA SCREENING EXAM MEDICARE Enoc Rod MD [address] [place] [address] [place] [address] Phone: tel: fax: Referral ID Status Reason Start Date Expiration Date Visits Requested Visits Authorized [id number] Authorization Not Needed 07/21/2025 07/21/2027 1 1 Reason for Visit * Vascular Imaging (Routine) - Authorization Not Needed Specialty Diagnoses / Procedures Referred By Jackelyn t Referred To Contact Radiology Diagnoses PAF (paroxysmal atrial fibrillation) (HCC) Leg swelling Abdominal aortic aneurysm (AAA) without rupture, unspecified part Tobacco abuse Procedures [facility] AAA SCREENING EXAM MEDICARE Enoc Rod MD [address] [place] [address] [place] [address] Phone: tel: fax: Referral ID Status Reason Start Date Expiration Date Visits Requested Visits Authorized [id number] Authorization Not Needed 07/21/2025 07/21/2027 1 1 Encounter Details Date Type Department Care Team (Latest Contact Info) Description 07/23/2025 10:22 AM EST - 07/23/2025 11:59 PM EST Hospital Encounter EDG VASCULAR LAB [facility] [place] [address] Enoc Rod MD [address] [facility] [place] [address] PAF (paroxysmal atrial fibrillation) ([facility]); Leg swelling; Abdominal aortic aneurysm (AAA) without rupture, unspecified part; Tobacco abuse Discharge Disposition: Home or Self Care Social [...] EST Office Visit [facility] [address] [place] [address] [address] [place] [address] Paulino Olivas MD [address] [place] [address] [place] [address] 01/19/2026 1:30 PM EDT Office Visit [facility] [address] [address] Latoya Mahmood M, ENTRY LEVEL PROJECT COORDINATOR [address] [place] [address] [place] [address] documented as of this encounter Procedures Procedure Name Priority Date/Time Associated Diagnosis Comments [facility] AAA SCREENING EXAM MEDICARE Routine 07/23/2025 11:13 AM EST PAF (paroxysmal atrial fibrillation) (HCC) Leg swelling Abdominal aortic aneurysm (AAA) without rupture, unspecified part Tobacco abuse documented in this encounter Results * [facility] AAA SCREENING EXAM MEDICARE (07/23/2025 11:13 AM [...] artery are not visualized. Narrative Procedure Note Kameron Ríos MD - 07/24/2025 IMPRESSION Conclusions * [...] arteries and the celiac artery are notvisualized. Enoc Rod MD IMG VASCULAR ORDERABLES Final Re sult documented in this encounter Visit Diagnoses Diagnosis PAF (paroxysmal atrial fibrillation) (HCC) Atrial fibrillation Leg swelling Swelling of limb Abdominal aortic aneurysm (AAA) without rupture, unspecified part Tobacco abuse Tobacco use disorder documented in this encounter
--- OUTSIDE RECORDS SUMMARY | 2025-07-25 15:40 | XMS_ITS | Encounter Summary ---
Author Organization [place] [address] Care Team Providers Care City Weighmaster Name Role Phone Unavailable Primary Care Provider Unavailabl e Reason for Visit * Reason Comments Varicose Veins * Consultation (Routine) - Authorization Not Needed Specialty Diagnoses / Procedures Referred By Jackelyn herron Referred To Contact Vascular Surgery Diagnoses PAF (paroxysmal atrial fibrillation) (HCC) Leg swelling Procedures [place] OFFICE/OUTPATIENT NEW MODERATE MDM 45 MINUTES Enoc Rod MD [address] [facility] [place] [address] Phone: tel: fax: Kameron Ríos MD [address] [place] [address] [address] [place] [address] Phone: tel: fax: Referral ID Status Reason Start Date Expiration Date Visits Requested Visits Authorized [id number] Authorization Not Needed 07/21/2025 07/21/2026 99 99 Encounter Details Date Type Department Care Team (Latest Contact Info) Description 07/25/2025 3:40 PM EST Office Visit [facility] [address] [facility] [address] [place] [address] Yoandy Zimmer DO [address] [facility] [address] [place] [address] Venous insufficiency (Primary Dx); Infrarenal abdominal aortic aneurysm (AAA) without rupture Social History Tobacco Use Types Packs/Day Years Used Date Smoking Tobacco: Every Day Cigarettes 0.3 34.9 Started: 1990 Smokeless Tobacco: Never Tobacco Cessation:Ready to Q uit: Not Asked; Counseling Given: Not Answered Alcohol Use Standard Drinks/Week [...] Sign Reading Time Taken Comments Blood Pressure 148/98 07/25/2025 3:57 PM EST Pulse 92 07/25/2025 3:54 PM EST Temperature 36.6 C (97.8 F) 07/25/2025 3:54 PM EST Respiratory Rate - - Oxygen Saturation - - Inhaled Oxygen Concentration - - Weight 118.9 kg (262 lb 3.2 oz) 07/25/2025 3:54 PM EST Height 182.9 cm (6') 07/25/2025 3:54 PM EST Body Mass Index 35.56 07/25/2025 3:54 PM EST documented in this encounter Progress Notes * Yoandy Zimmer, - 07/25/2025 3:40 PM EST Subjective: We have been asked by Dr. Rod to provide initial consultation on Nir History of Present Illness The patient is a 70 y.o. male: Venous Insufficiency Complains of bilateral L=R lower extremity pain. Describes pain as itching, burning, aching, heaviness, and fatigued which is primarily located in the thigh. Ambulating makes the pain worse. Denies open wounds. Complains of swelling located in bilateral L=R leg. Denies history of DVT/trauma. Denies previous vein interventions. Denies varicosities and spider veins. Takes OTC medications PRN. Wears compression stockings daily and elevates legs daily. Takes statin and Xarelto daily. Current smoker 5 cigarettes per day. History of Present Illness The patient is a 70-year-old male who presents for initial evaluation regarding lower extremity edema and abdominal aortic aneurysm. He was referred to our facility by Dr. Rod due to persistent lower extremity swelling. He reports significant swelling in his legs, which he manages with Danny wraps. He has not yet attempted to use compression stockings due to concerns about potential discomfort during application. He also mentionsa large blister on his left leg, which he has self-treated by wrapping it. He expresses concern about the dryness of his skin when he wears socks every other day and applies Vaseline as a preventive measure. The patient has a history of right knee surgery, during which he experienced a fall from bed that resulted in the reopening of his sutures and subsequent tearing. He also has a history of three back surgeries and requires a fusion procedure, but no surgeon is willing to perform it. He has been diagnosed with spinal stenosis . He has a history of cardiac issues, including the placement of three stents, but has not undergone open heart surgery. He recently underwent a stress test at [facility], which revealed low blood volume in the left side of his heart, prompting a recommendation for catheterization. He is currently in atrial fibrillation and was scheduled for an ablation procedure, but this was postponed pending the results of other tests. He has a history of smoking, with a current consumption of approximately five cigarettes per day, although he had previously reduced this to one per day while residing in [place]. The patient has a history of three aneurysms, two thoracic and one abdominal , which were identified through ultrasound. He recently underwent a CT scan in 02/2025 in [place], which revealed an aneurysm measuring 5.3 cm, but a subsequent ultrasound indicated an increase to 5.6 cm. He reports no history of chronic obstructive pulmonary disease or emphysema but does report wheezing, which he attributes to allergies. PAST SURGICAL HISTORY: - Knee surgery - Three back surgeries - Cardiac stent placement (three stents) SOCIAL HISTORY Tobacco: Smokes about five cigarettes a day. FAMILY HISTORY - Brothers: History of aneurysms - Father: from an aneurysm Patients past medical, family and social histories were reviewed and updated. There are no changes except as noted. Past Medical History[1] Patient Active Problem List Diagnosis Date Noted PAF (paroxysmal atrial fibrillation) (HCC) 05/20/2025 CAD (coronary artery disease) 05/20/2025 Hyperlipidemia 05/20/2025 Essential hypertension 05/20/2025 Surgical History[2] Family History[3] Social History Tobacco Use Smoking status: Every Day Current packs/day: 0.25 Average packs/day: 0.3 packs/day for 34.8 years (8.7 ttl pk-yrs) Types: Cigarettes Start date: 1990 Smokeless tobacco: Never Substance Use Topics Alcohol use: Never Current Outpatient Medications Medication Instructions aspirin 81 mg, Oral, DAILY atorvastatin (LIPITOR) 80 mg, DAILY buPROPion (WELLBUTRIN SR) 150 mg, DAILY DULoxetine (CYMBALTA) 30 mg, DAILY DULoxetine (CYMBALTA) 60 mg, DAILY fUROsemide (LASIX) 20 mg, DAILY lisinopriL (PRINIVIL;ZESTRIL) 20 mg, DAILY metoprolol (LOPRESSOR) 25 mg, 2 TIMES DAILY omeprazole (PRILOSEC) 20 mg, EVERY DAY BEFORE MEAL potassium chloride (KLOR-CON M) 20 mEq Oral Tab Sust.Rel. Particle/Crystal 20 mEq, 2 TIMES DAILY pregabalin (LYRICA) 150 mg, 3 TIMES DAILY rivaroxaban (XARELTO) 20 mg, DAILY spironolactone (ALDACTONE) 25 mg, DAILY tamsulosin (FLOMAX) 0.4 mg, DAILY Allergies[4] Review of Systems Constitutional: Negative for chills and fever. Respiratory: Positive for shortness of breath. Negative for chest tightness. Cardiovascular: Positive for leg swelling. Skin: Negative for color change and wound. Neurological: Positive for dizziness and light-headedness. All other systems reviewed and are negative. Objective: Vitals: 07/25/25 1554 07/25/25 1557 BP: (!) 150/101 148/98 BP Location: Right arm Left arm Patient Position: Sitting Sitting Pulse: 92 Temp: 97.8 ??F (36.6 ??C) TempSrc: Forehead Weight: 262 lb 3.2 oz (118.9 kg) Height: 6' (1.829 m) Body mass index is 35.56 kg/m??. Physical Exam Physical Exam Constitutional: Appearance: He is well-developed. HENT: Head: Normocephalic and atraumatic. Neck: Vascular: No carotid bruit or JVD. Cardiovascular: Rate and Rhythm: Regular rhythm. Pulses: Radial pulses are 2+ on the right side and 2+ on the left side. Femoral pulses are 2+ on the right side and 2+ on the left side. Popliteal pulses are 2+ on the right side and 1+ on the left side. Dorsalis pedis pulses are 2+ on the right side and 2+ on the left side. Posterior tibial pulses are 0 on the right side and 0 on the left side. Heart sounds: Normal heart sounds, S1 normal and S2 normal. No murmur heard. Comments: No prominent varicose veins bilateral LE. Hyperpigmentation bilateral calves, left > right. Bilateral LE edema well controlled with DANNY wrap compression. Pulmonary: Effort: Pulmonary effort is normal. Breath sounds: Wheezing present. No rhonchi or rales. Abdominal: General: Abdomen is protuberant. There is no distension. Palpations: Abdomen is soft. Tenderness: There is no abdominal tenderness. There is no guarding or rebound. Comments: Obese, unable to appreciate abdominal aorta due to body habitus. Musculoskeletal: General: Normal range of motion. Cervical back: Neck supple. Lymphadenopathy: Cervical: No cervical adenopathy. Skin: General: Skin is warm and dry. Neurological: Mental Status: He is alert and oriented to person, place, and time. Psychiatric: Speech: Speech normal. Behavior: Behavior normal. Behavior is cooperative. Thought Content: Thought content normal. Judgment: Judgment normal. Results Assessment and Plan: Assessment & Plan 1. Lower extremity pain. Bilateral calf hyperpigmentation, left greater than right, with no prominent varicose veins. Significant swelling reported, currently managed well with Danny wraps, which are found effective and easierto use than compression stockings. Advised to continue using wraps and avoid swelling to prevent blisters and potential ulcers. Prescription for compression stockings (knee-high or thigh- high) provided. Recommended to apply lotion to manage dryness. 2. Aortic aneurysm. History of three aneurysms: two thoracic and one abdominal . Recent imaging shows the abdominal aneurysm has increased from 5.3 cm to 5.6 cm. CTA of the chest, abdomen, and pelvis ordered to assess the current status of the aneurysms. If surgical intervention is required, referral to Dr. Rod for pre- surgical cardiac evaluation. 3. Cardiac issues. History of three stents and currently in atrial fibrillation. [facility] plans to perform a heart catheterization due to low blood volume in the left side of the heart, as indicated by a stress test. Advised to discuss further with Dr. Norton to clarify the plan and potential risks. 4. Wheezing. Bilateral wheezing noted, attributed to allergies rather than COPD or emphysema. Advised to monitorsymptoms and consider discussing allergy management with primary care provider. 5. Back pain. History of three back surgeries with a diagnosis of stenosis. Requires a fusion procedure but no surgeon is willing to perform it. Diagnoses and all orders for this visit: Venous insufficiency Infrarenal abdominal aortic aneurysm (AAA) without rupture - CT CHEST ABDOMEN PELVIS W CONTRAST; Future presents today in consultation of evaluation for edema and aneurysm. Return in CTA chest abd and pelvis Note written by Karmen Bowers MA acting as scribe for Yoandy Zimmer DO The provider educated the patient (or legal territory representative) on the use of the ambient listening artificial intelligence tool, [employer]. They were informed that this AI tool processes the conversation to generate a clinical note with the expected benefit of improved accuracy while achieving an improved encounter experience for the patient and provider.?The provider explained that the medical information captured by the AI tool including, but not limited to, diagnoses and treatment plan would be protected in accordance with applicable privacy laws and that all diagnoses and treatment decisions would be made by the provider. The provider explained that the note generated will be reviewed bythe provider for accuracy to minimize potential errors.? The patient was given an opportunity to ask questions and opt out of proceeding with the use of the AI tool. After being informed of such information, the patient (or legal territory representative), and each individual in attendance with the patient, verbally consented to the use of the AI tool. I have reviewed this note and it accurately reflects my work and decisions made during this visit. Signed: Yoandy Zimmer DO 07/25/2025 [1] Past Medical History: Diagnosis Date CAD (coronary artery disease) 05/20/2025 Essential hypertension 05/20/2025 Hyperlipidemia 05/20/2025 PAF (paroxysmal atrial fibrillation) (HCC) 05/20/2025 [2] History reviewed. No pertinent surgical history. [3] History reviewed. No pertinent family history. [4] Allergies Allergen Reactions Adhesive Rash documented in this encounter Plan of Treatment Upcoming Encounters Date Type Department Care Team (Late st Contact Info) Description 08/26/2025 2:00 PM EST Office Visit [facility] [address] [place] [address] [address] [place] [address] Paulino Olivas MD [address] [place] [address] 01/19/2026 1:30 PM EDT Office Visit [facility] [address] [address] Latoya Mahmood, WOODWORKING SHOP HAND [address] [facility] [address] [place] [facility] documented as of this encounter Visit Diagnoses Diagnosis Venous insufficiency- Primary Unspecified venous (peripheral) insufficiency Infrarenal abdominal aortic aneurysm (AAA) without rupture documented in this encounter Additional Health Concerns Assessment Noted Time A fall risk assessment has been complete d for the patient 07/25/2025 3:54 PM EST documented as of this encounter
--- OUTSIDE RECORDS SUMMARY | 2025-08-04 13:02 | XMS_ITS | Encounter Summary ---
Author Organization [place] [address] Care Team Providers Care Oil Well Cable Tool Driller Name Role Phone Unavailable Primary Care Provider Unavailabl e Reason for Visit * MRI/CAT Scan (Routine) - Authorization Not Needed Specialty Diagnoses / Procedures Referred By Jackelyn herron Referred To Contact Radiology Diagnoses Infrarenal abdominal aortic aneurysm (AAA) without rupture Procedures CT ANGIOGRAM CHEST ABDOMEN PELVIS W CONTRAST CT CHEST ABDOMEN PELVIS W CONTRAST Yoandy Zimmer, DO [address] [facility] [address] [place] [address] Phone: tel: fax: Referral ID Status Reason Start Date Expiration Date Visits Requested Visits Authorized [id number] Authorization Not Needed 07/25/2025 07/25/2026 1 1 Encounter Details Date Type Department Care Team (Latest Contact Info) Description 08/04/2025 1:02 PM EST - 08/04/2025 11:59 PM [facility] [place] [address] Yoandy Zimmer DO [address] [facility] [address] [place] [address] Infrarenal abdominal aortic aneurysm (AAA) without rupture Discharge Disposition: Home or Self Care Social History Tobacco Use Types Packs/Day Years Used Date Smoking Tobacco: Every Day Cigarettes 0.3 34.9 Started: 1991 Smokeless Tobacco: Never Alcohol Use Standard Drinks/Week [...] EST Office Visit [facility] [address] [place] [address] [address] [place] [phone] Paulino Olivas MD [address] [place], [place] [address] [address] 01/19/2026 1:30 PM EDT Office Visit [facility] [address] [place] [address] Latoya Mahmood, KNIFE GRINDER [address] [place] [address] documented as of this encounter Procedures Procedure Name Priority Date/Time Associated Diagnosis Comments CT ANGIOGRAM CHEST ABDOMEN PELVIS W CONTRAST Routine 08/04/2025 2:16 PM EST Infrarenal abdominal aortic aneurysm (AAA) without rupture CREATININE ISTAT Routine 08/04/2025 2:10 PM EST documented in this encounter Results * CT ANGIOGRAM CHEST ABDOMEN PELVIS W CONTRAST (08/04/2025 2:16 PM EST) Anatomical Region Laterality Modality Abdomen, Pelvis, Chest Computed Tomography 08/04/2025 2:16 PM EST Impressions 08/04/2025 2:26 PM EST 1. Infrarenal abdominal aortic aneurysm measuring 5.8 x 5.5 cm. 2. Aneurysmal dilatation of the ascending aorta measuring 4.3 cm. 3. Moderate to tight narrowing of the left renal artery due to ostial calcification. 4. Moderate narrowing of the right renal artery due to ostial calcification. 5. Cholelithiasis. Aorta recommendation: Vascular surgery or interventional radiology consultation recommended due to increased risk of rupture for AAA >5.5 cm. - Note: Radiology results need to be interpreted within a comprehensive clinical context. If you have questions about the radiology report, please contact the office of the ordering clinician. Narrative 08/04/2025 2:[address] ANGIOGRAM CHEST ABDOMEN PELVIS W CONTRAST 08/04/2025 2:16 PM CLINICAL HISTORY: I71.43-Infrarenal abdominal aortic aneurysm, without [id number]. COMPARISON: None. PROCEDURE COMMENTS: Multidetector CT angiography of the region of interest. Iodinated IV contrast given as recorded in EPIC. Multiplanar reconstructions generated and reviewed, including 3D MIPS. Dose 1 : CT DLP Total : 668.67 mGycm DLP Spiral Max : 652.68 mGycm Maximum CTDI Vol : 10.01 mGy FINDINGS: The ascending aorta shows transverse diameter of 4.3 cm indicating aneurysmal dilatation. There is atherosclerotic calcification of the ascending, transverse and descending thoracic aorta with no acute abnormality or dissection. No significant luminal narrowing. The abdominal aorta is patent. Infrarenal abdominal aortic aneurysm measures 5.8 x 5.5 cm. Length of the aneurysm is 7.2 cm. The aneurysm begins 1.7 cm below the renal arteries. The bifurcation is normal in caliber. The right common iliac measures 18 mm in the left common iliac measures 15 mm. The external iliac arteries and common femoral arteries are patent. Above the aneurysm, the celiac and SMA show mild atherosclerotic calcification but no flow-limiting stenosis. There is moderate narrowing of the right renal artery due to ostial calcification. The left renal artery shows moderate to tight narrowing due to ostial calcification but there is accessory left renal artery to the lower pole, just above the aneurysm sac, also showing moderate to tight narrowing. No worrisome lung nodules or acute inflammatory changes. Angiographic appearance of the liver, spleen, pancreas, adrenal glands and kidneys are unremarkable. Gallstones are noted within the gallbladder. No large or small bowel inflammation or dilatation. Lumbar degenerative changes are present. Procedure Note Aldair Hartley MD - 08/04/2025 CT ANGIOGRAM CHEST ABDOMEN PELVIS W CONTRAST 08/04/2025 2:16 PM CLINICAL HISTORY: I71.43-Infrarenal abdominal aortic aneurysm, without [id number]. COMPARISON: None. PROCEDURE COMMENTS: Multidetector CT angiography of the region ofinterest. Iodinated IV contrast given as recorded in EPIC. Multiplanarreconstructions generated and reviewed, including 3D MIPS. Dose 1 : CT DLP Total : 668.67 mGycm DLP Spiral Max : 652.68 mGycm Maximum CTDI Vol : 10.01 mGy FINDINGS: The ascending aorta shows transverse diameter of 4.3 cm indicatinganeurysmal dilatation. There is atherosclerotic calcification of the ascending,transverse and descending thoracic aorta with no acute abnormality or dissection.No significant luminal narrowing. The abdominal aorta is patent. Infrarenal abdominal aortic aneurysmmeasures 5.8 x 5.5 cm. Length of the aneurysm is 7.2 cm. The aneurysm begins 1.7 cmbelow the renal arteries. The bifurcation is normal in caliber. The right commoniliac measures 18 mm in the left common iliac measures 15 mm. The externaliliac arteries and common femoral arteries are patent. Above the aneurysm, the celiac and SMA show mild atheroscleroticcalcification but no flow-limiting stenosis. There is moderate narrowing of the rightrenal artery due to ostial calcification. The left renal artery shows moderateto tight narrowing due to ostial calcification but there is accessory leftrenal artery to the lower pole, just above the aneurysm sac, also showingmoderate to tight narrowing. No worrisome lung nodules or acute inflammatory changes. Angiographic appearance of the liver, spleen, pancreas, adrenal glandsand kidneys are unremarkable. Gallstones are noted within the gallbladder. No large or small bowel inflammation or dilatation. Lumbar degenerativechanges are present. IMPRESSION: 1. Infrarenal abdominal aortic aneurysm measuring 5.8 x 5.5 cm. 2. Aneurysmal dilatation of the ascending aorta measuring 4.3 cm. 3. Moderate to tight narrowing of the left renal artery due to ostial calcification. 4. Moderate narrowing of the right renal artery due to ostialcalcification. 5. Cholelithiasis. Aorta recommendation: Vascular surgery or interventional radiologyconsultation recommended due to increased risk of rupture for AAA >5.5 cm. - Note: Radiology results need to be interpreted within a comprehensiveclinical context. If you have questions about the radiology report, please contactthe office of the ordering clinician. us Yoandy Zimmer DO IMG CT ORDERABLES Final Result * CREATININE ISTAT (08/04/2025 2:10 PM EST) Creatinine-iST AT 1.1 0.6 - 1.3 mg/dL 08/04/2025 2:12 PM EST [facility] Blood BLOOD SPECIMEN / Unknown 08/04/2025 2:10 PM EST 08/04/2025 2:12 PM EST us Yoandy Zimmer DO POINT OF CARE TEST ORDERABLES Fi nal Result [facility] [address] [place] [address] documented in this encounter Visit Diagnoses Diagnosis Infrarenal abdominal aortic aneurysm (AAA) without rupture documented in this encounter Administered Medications Inactive Administered Medications - up to 1 most recent administrations Medication Order MAR Action Action Date Dose Rate Site iohexoL (OMNIPAQUE-350) solution 100 mL 100 mL, Intravenous, ONCE PRN, 1 dose, Starting on Mon08/04/25 at 1349, Until Mon08/04/25 at 1418, Other, Radiology Procedure, VESICANT , CT (Contrasts) Given 08/04/2025 2:18 PM EST 100 mL Right Arm sodium chloride 0.9% syringe Intravenous, ONCE PRN, 1 dose, Starting on Mon08/04/25 at 1349, Until Mon08/04/25 at 1419, Line Care, Flush peripheral lines every 12 hours, central lines every 8 hours, and after IV medication, CT (Contrasts) Given 08/04/2025 2:19 PM EST 100 mL Right Arm documented in this encounter Additional Health Concerns Assessment Noted Time A fall risk assessment has been complete d for the patient 07/25/2025 3:54 PM EST documented as of this encounter
--- OUTSIDE RECORDS SUMMARY | 2025-08-07 10:45 | XMS_ITS | Encounter Summary ---
Author Organization [place] [address] Care Team Providers Care Color Artist Name Role Phone Unavailable Primary Care Provider Unavailabl e Reason for Visit * Reason Comments Abdominal Aortic Aneurysm Encounter Details Date Type Department Care Team (Late st Contact Info) Description 08/07/2025 10:45 AM EST Office Visit [facility] [address] [facility] [address] [place] [address] Yoandy Zimmer, DO [address] [facility] [address] [place] [address] Infrarenal abdominal aortic aneurysm (AAA) without rupture (Primary Dx); Cigarette nicotine dependence with nicotine-induced disorder Social History Tobacco Use Types Packs/Day Years [...] Sign Reading Time Taken Comments Blood Pressure 118/84 08/07/2025 10:54 AM EST Pulse 75 08/07/2025 10:50 AM EST Temperature 36.2 C (97.2 F) 08/07/2025 10:50 AM EST Respiratory Rate - - Oxygen Saturation - - Inhaled Oxygen Concentration - - Weight 119.7 kg (264 lb) 08/07/2025 10:50 AM EST Height - - Body Mass Index 35.8 07/25/2025 3:54 PM EST documented in this encounter Patient Instructions * Attachments The following attachments cannot be sent through Care Everywhere. * Abdominal aortic aneurysm (Czech) documented in this encounter Progress Notes * Yoandy Zimmer, DO - 08/07/2025 10:45 AM EST Subjective: Mr. Johnson is here for a scheduled routine follow-up visit History of Present Illness The patient is a 70 y.o. male: Aorta/Iliac - Established f/u Follow up for abdominal aortic aneurysm. Since previous visit on 07/25/2025 Complains of acute back pain. Had 4 stents put in yesterday in heart. Takes ASA and Plavix daily and Xarelto. Daily smoker . History of Present Illness The patient is a 70-year-old male who presents for a follow-up visit regarding an abdominal aortic aneurysm. He is accompanied by his son. He has been diagnosed with three aneurysms, including a thoracic ascending aneurysm and an aneurysmbelow the renal arteries measuring approximately 5.8 to 5.9 centimeters. The patient reports no history of smoking and states that his father had an abdominal aortic aneurysm and underwent open surgery. His father also had a thoracic aneurysm that started leaking, but he chose not to undergo another surgery and subsequently . The patient had four stents placed in his heart on 08/06/[address] [place] [address] John. He has seen Dr. Rod once but does not wish to continue seeing him. PAST SURGICAL HISTORY: Placement of four cardiac stents on 08/06/2025. SOCIAL HISTORY Marital Status: Tobacco: Does not smoke FAMILY HISTORY - Father: Abdominal aortic aneurysm, underwent open surgery; thoracic aneurysm, did not undergo surgery and . - Brothers: Three aneurysms. Patients past medical, family and social histories [...] packs/day: 0.25 Average packs/day: 0.3 packs/day for 34.9 years (8.7 ttl pk-yrs) Types: Cigarettes Start [...] mg, DAILY Allergies[4] Review of Systems Constitutional: Negative. Negative for appetite change, chills, fatigue and fever. Respiratory: Positive for shortness of breath. Negative for chest tightness. Cardiovascular: Negative for chest pain. Gastrointestinal: Positive for abdominal pain. Genitourinary: Positive for flank pain. Musculoskeletal: Positive for back pain and myalgias. Neurological: Positive for dizziness. All other systems reviewed and are negative. Objective: Vitals: 08/07/25 1050 08/07/25 1054 BP: 124/78 118/84 BP Location: Left arm Left arm Patient Position: Sitting Sitting Pulse: 75 Temp: 97.2 ??F (36.2 ??C) TempSrc: Forehead Weight: 264 lb (119.7 kg) Body mass index is 35.8 kg/m??. Physical Exam Physical Exam Constitutional: Appearance: He is well-developed. HENT: Head: Normocephalic and atraumatic. Pulmonary: Effort: Pulmonary effort is normal. Musculoskeletal: General: Normal range of motion. Comments: No prominent varicose veins bilateral LE. Hyperpigmentation bilateral calves, left > right. Bilateral LE edema well controlled with BRITTANY wrap compression. Skin: General: Skin is warm and dry. Neurological: Mental Status: He is alert and oriented to person, place, and time. Psychiatric: Speech: Speech normal. Behavior: Behavior normal. Behavior is cooperative. Thought Content: Thought content normal. Judgment: Judgment normal. Imaging: AAA Imaging CT ANGIOGRAM CHEST ABDOMEN PELVIS W CONTRAST Result Date: 08/04/2025 1. Infrarenal abdominal aortic aneurysm measuring 5.8 x 5.5 cm. 2. Aneurysmal dilatation of the ascending aorta measuring 4.3 cm. 3. Moderate to tight narrowing of the left renal artery due to ostialcalcification. 4. Moderate narrowing of the right renal artery due to ostial calcification. 5. Peri lithiasis. Aorta recommendation: Vascular surgery or interventional radiology consultation recommended due to increased risk of rupture for AAA >5.5 cm. - Note: Radiology results need to be interpreted within a comprehensive clinical context. If you have questions about the radiology report, please contact the office of the ordering clinician. [facility] AAA SCREENING EXAM MEDICARE Result Date: 07/24/2025 Conclusions * Heterogenous plaque is noted in the mid to distal abdominal aorta. * A large (diameter 5.0-6.0 cm) abdominal aortic aneurysm is noted with a maximal diameter of 5.6 cm x 5.0 cm. * The right and left common iliac arteries are ectatic. The right common iliac artery measures 1.7 cm x 1.5cm, and the left common iliac artery measures 1.5 cm x 1.4 cm. * The bilateral renal arteries and the celiac artery are not visualized. Results Assessment and Plan: Assessment & Plan 1. Abdominal aortic aneurysm. The abdominal aortic aneurysm measures 5.8 to 5.9 cm, which poses a high risk of leakage or rupture. A comprehensive discussion was held regarding the potential risks and benefits of both open surgery and stent graft placement. Open surgery involves a large incision in the abdomen and a prolonged hospital stay with potential complications. Stent graft placement is minimally invasive with a shorter hospital stay but requires lifelong monitoring through periodic CT scans and ultrasounds to ensurethe stent graft does not migrate or leak. The possibility of bleeding from the puncture site duringsurgery was discussed, which might require opening up the groin to control the bleeding and apply st itches (arteriotomy repair). The need for general anesthesia was emphasized, and the potential difficulty in weaning off the ventilator post-surgery was mentioned. Consultation with Dr. John for cardiac clearance prior to proceeding with the surgery is advised. If clearance is obtained, the surgery will be scheduled, and notification of the date and time will be provided. If everything goes well, most people go home the next day. Diagnoses and all orders for this visit: Infrarenal abdominal aortic aneurysm (AAA) without rupture Cigarette nicotine dependence with nicotine-induced disorder - UT TOBACCO USE CESSATION INTERMEDIATE 3-10 MINUTES Mr. Johnson presents today in follow up for abdominal aorta aneurysm. On exam patient is accompanied by his son today. I discussed with the patient the results of his aneurysm. I recommend intervention EVAR. Discussed the surgery, risks, including benefits, and alternatives. I recommend he return to information services tech for cardiac clearance, and then we can move forward. Hehas appointment with information services tech Dr. John next week. If he develops severe stabbing back pain, chest pain or abdominal pain, he was instructed to call 911 and be transported to [facility], have a CT and if leaking then would repair emergently. I also encouraged the patient to stop smoking (spent 4 minutes discussing methods for smoking cessation). I explained nicotine is a direct irritant to the lining of the arteries and will eventually cause problems. I encouraged his to change up his routine which will help his stop nicotine habits. I reviewed the ct scan images dated 08/04/2025 that demonstrates infrarenal abdominal aortic aneurysm measuring 5.8 x 5.5 cm. Aneurysmal dilatation of the ascending aorta measuring 4.3 cm. All questions answered. Recommend intervention EVAR. The provider educated the patient (or legal videotape sales representative) on the use of the ambient listening artificial intelligence tool, [employer] They were informed that this AI tool [...] of such information, the patient (or legal videotape sales representative), and each individual in attendance with the patient, verbally consented to the use of the AI tool. Note written by KAN Young acting as scribe for Yoandy Zimmer, DO I have reviewed this note and it accurately reflects my work and decisions made during this visit. Signed: Yoandy Zimmer DO 08/07/2025 [1] Past Medical History: Diagnosis Date CAD (coronary artery disease) 05/20/2025 Essential hypertension 05/20/2025 Hyperlipidemia 05/20/2025 PAF (paroxysmal atrial fibrillation) (HCC) 05/20/2025 [2] History reviewed. No pertinent surgical history. [3] History reviewed. No pertinent family history. [4] Allergies Allergen Reactions Adhesive Rash documented in this encounter Miscellaneous Notes * Patient Instructions - Lynn Ramírez MA - 08/07/2025 10:45 AM EST You may be contacted by mail, e-mail or by text message to participate in a patient satisfaction survey regarding your office visit today. We value your opinion and depend on your feedback to make improvements and provide you with the best possible experience while receiving high quality medical treatment. Your time in completing this survey is greatly appreciated. As with most of these types of surveys, only the top box score is regarded as positive feedback. If you find you cannot score us in the top box we would rather you call the office at [phone] and speak with our management team so we may know how to improve. documented in this encounter Plan of Treatment Upcoming Encounters Date Type Department Care Team (Late st Contact Info) Description 08/26/2025 2:00 PM EST Office Visit [facility] [address] [place] [address] [address] [place] [address] Paulino Olivas MD [address] [place] [address] [place] [address] 01/19/2026 1:30 PM EDT Office Visit [facility] [address] [address] Latoya Mahmood APRN [address] [place] [address] DR [address] [place] [address] Scheduled Orders Name Type Priority Associated Diagnoses Orde r Schedule UT TOBACCO USE CESSATION INTERMEDIATE 3-10 MINUTES UT Charge Routine Cigarette nicotine dependence with nicotine-induced disorder Ordered: 08/07/2025 documented as of this encounter Visit Diagnoses Diagnosis Infrarenal abdominal aortic aneurysm (AAA) without rupture- Primary 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
--- OUTSIDE RECORDS SUMMARY | 2025-08-08 14:41 | XMS_ITS | Encounter Summary ---
Author Organization [place] [address] Care Team Providers Care Paid Search Marketing Strategist Name Role Phone Unavailable Primary Care Provider Unavailabl e Encounter Details Date Type Department Care Team (Late st Contact Info) Description 08/08/2025 Orders Only [facility] 20 [facility] [address] [place] [address] Yoandy Zimmer, DO [address] [facility] [address] [place] [address] Pre-op exam (Primary Dx); Infrarenal abdominal aortic aneurysm (AAA) [...] Ctr Edg [address] [facility] [address] [place] [address] Paulino Olivas MD [address] [facility] [id number] 01/19/2026 1:30 PM EDT Office Visit [facility] [place] [address] [place] [address] Latoya Mahmood APRN [address] [place] [address] [place] [address] documented as of this encounter Visit Diagnoses Diagnosis Pre-op exam- Primary Preoperative examination, unspecified Infrarenal abdominal aortic aneurysm (AAA) without rupture documented in this encounter Orders E-Consult Count Last Ordered Date First Orde red Date AMB E-CONSULT TO CARDIOLOGY 1 08/08/2025 documented in this encounter Additional Health Concerns Assessment Noted Time A fall risk assessment has been complete d for the patient 07/25/2025 3:54 PM EST documented as of this encounter
--- OUTSIDE RECORDS SUMMARY | 2025-08-08 14:41 | XMS_ITS | Encounter Summary ---
Author Organization [place] [address] Care Team Providers Care Tool Analyst Name Role Phone Unavailable Primary Care Provider Unavailabl e Encounter Details Date Type Department Care Team (Late Contact Info) Description 07/24/2025 Results [place] [address] Timoteo December M, CONSTRUCTION PROJECT COORDINATOR [address] [place] [address] [place] [address] [facility] AAA SCREENING EXAM MEDICARE Social History Tobacco Use Types Packs/Day Years [...] Encounters Date Type Department Care Team (Late Contact Info) Description 08/26/2025 2:00 PM EST Office Visit [facility] [address] [facility] [address] [place] [address] Paulino Olivas MD [address] [place] [address] [place] [address] 01/19/2026 1:30 PM EDT Office [place] [address] Timoteo December, CONSTRUCTION PROJECT COORDINATOR [address] [place] [address] [place] [address] documented as of this encounter Visit Diagnoses Not on filedocumented in this encounter
--- OUTSIDE RECORDS SUMMARY | 2025-08-08 14:41 | XMS_ITS | Encounter Summary ---
Author Organization [place] [address] Care Team Providers Care Maritime Officer Name Role Phone Unavailable Primary Care Provider Unavailabl e Reason for Visit * Reason Onset Date Comments Appointment Needed 08/05/2025 Encounter Details Date Type Department Care Team (Late st Contact Info) Description 08/05/2025 Telephone [facility] [address] [facility] [address] [place] [address] Karmen Bowers MA Appointment Needed Social History Tobacco Use Types Packs/Day Years [...] encounter Miscellaneous Notes * Telephone Encounter - Genesis Gallego ABR-OE - 08/05/2025 2:10 PM EST Patient called back and states that he will not have anyone with him at his appointment on 08/[address] Zimmer know. Patient also stated that he doesn't want to move the appointment any further out because he wants to get this taken care of. * Telephone Encounter - Karmen Bowers MA - 08/05/2025 11:19 AM EST Attempted to call patient to schedule an appointment patient documented in this encounter Plan of Treatment Upcoming Encounters Date Type Department Care Team (Late st Contact Info) Description 08/26/2025 2:00 PM EST Office Visit [facility] [address] [place] [address] [address] [place] [address] Paulino Olivas MD [address] [place] [address] [place] [address] 01/19/2026 1:30 PM EDT Office Visit [facility] [address] [address] Latoya Mahmood APRN [address] [place] [address] [place] [address] documented as of this encounter Visit Diagnoses Not on filedocumented in this encounter Additional Health Concerns Assessment Noted Time A fall risk assessment has been complete d for the patient 07/25/2025 3:54 PM EST documented as of this encounter
--- OUTSIDE RECORDS SUMMARY | 2025-08-08 14:41 | XMS_ITS | Encounter Summary ---
Author Organization [facility] [address] Care Team Providers Care Personal Attendant Name Role Phone Unavailable Primary Care Provider Unavailabl e Reason for Referral * Consultation (Emergency) - Authorization Not Needed Specialty Diagnoses / Procedures Referred By Jackelyn herron Referred To Contact Cardiology Diagnoses Abnormal stress test Procedures PA OFFICE/OUTPATIENT NEW MODERATE MDM 45 MINUTES Paulino Olivas MD [address] [place] [address] Phone: tel: fax: Referral ID Status Reason Start Date Expiration Date Visits Requested Visits Authorized [id number] Authorization Not Needed Specialty Services Required 07/15/2007/15/2026 99 99 Reason for Visit * Reason Onset Date Comments Other 07/14/2025 Encounter Details Date Type Department Care Team (Late st Contact Info) Description 07/14/2025 Telephone [facility] [address] [facility] [address] [place] [address] Paulino Olivas MD [address] [place] [address] Other Social History Tobacco Use Types Packs/Day [...] encounter Miscellaneous Notes * Telephone Encounter - Frances Cameron RMA - 07/15/2025 2:45 PM EDT STAT referral placed to cardiology. * Telephone Encounter - Anisha Rodriguez APRN - 07/15/2025 1:24 PM EDT Called and spoke with patient. Will refer him to interventional cardiology. Patient has strong history of CAD. Last [facility] 03/24/24: Addendum by Julissa Branch MD on 03/24/2024 5:14 PM CDT Inferior STEMI proximal RCA was culprit. Large ectatic/aneurysmal blood vessels, large aneurysmal aorta -RCA was engaged with a JR4 6 Thai guide and run-through wire was advanced to the distal PDA -4.0x 12 balloon angioplasty was done at the target vessel in the proximal RCA with caodaism of TYRONE-3 flow -4.0X 26 mm Jude frontier MAO deployed at nominal and postdilated with 5 oh NC balloon -Proximal edge dissection was seen after postdilatation with 5 NC -5.0 X12 millimeter [place] MAO to cover the dissection was deployed at nominal with TYRONE 3 flow Coronary Findings Diagnostic Dominance: Right Left Main: The vessel is large. Mild (10-40%). The vessel is ectatic. Left Anterior Descending: The vessel is large. The vessel is ectatic. Prox LAD to Mid LAD lesion is30% stenosed. The lesion was previously treated. Left Circumflex: The vessel is large. The vessel is ectatic. Right Coronary Artery: Prox RCA lesion is 100% stenosed. Mid RCA lesion is 40% stenosed. The lesionwas previously treated. Intervention Prox RCA lesion: PCI: The patient had predilitation using a BALLOON COR 4.0 X 12MM EMERGE MR [id number] supply.Maximum pressure: 10 akbar. Inflation time: 10 sec. Angioplasty was performed using a BALLOON COR 4.0 X 15MM EMERGE MR [id number] supply. Maximum pressure: 6 akbar. Inflation time: 8 sec. A STENT JUDE FRONTIER RX 4.0 X 26MM [id number] drug eluting stent was successfully placed. Maximum pressure: 16 AKBAR.Inflation time: 16 seconds. The strut is apposed. Post-stent angioplasty was performed using a BALLOON COR RX 5.00 X 12MM NC EMERGE [id number] supply. Maximum pressure: 12 akbar. Inflation time: 5 sec. No angioplasty was performed. A STENT JUDE FRONTIER RX 5.0 X 12MM [id number] drug-eluting stent was successfully placed. Maximum pressure: 8 AKBAR.Inflation time: 12 seconds.The strut is apposed. Stent 2 overlaps stent 1 proximally. Post-stent angioplasty was performed using a STENT JUDE FRONTIER RX 5.0 X 12MM [id number] supply. Maximum pressure: 8 akbra. Inflation time: 5 sec. Supplies Used: BALLOON COR 4.0 X 15MM EMERGE MR [id number]; BALLOON COR 4.0 X 12MM EMERGE MR [id number]; BALLOON COR 3.5 X 12MM EMERGE MR [id number]; BALLOON COR 3.0 X 15MM EMERGE MR [id number]; BALLOON COR RX 5.00 X 12MM NC EMERGE [id number]; STENT JUDE FRONTIER RX 5.0X 26MM [id number]; STENT JUDE FRONTIER RX 4.0 X 26MM [id number]; STENT JUDE FRONTIER RX 5.0 X12MM [id number] There is a 0% residual stenosis post intervention. Recent stress test at [facility] showed some reversible defect. Please refer patient to interventional cardiology > needs appt ELIJAH for abnormal stress test. Thanks! * Telephone Encounter - Nuria Chatman, Clerical Staff - 07/14/2025 3:47 PM EDT Patient called back. He state the financial auditor he seen at [place] recommends a cath. Nir did not feel comfortable with his recommendation. Please call Nir @ [phone] Thank you * Telephone Encounter - Anisha Rodriguez APRN - 07/14/2025 1:42 PM EDT Called patient and received VM and LMTRC. > We only received stress test from [facility]. Are there other records we are suppose ramos reviewing? > if so please request from facility and let patient know once received we will reach back out to him. > if no other records then re: the stress test Dr. Olivas would leave that up to the Program Engagement Director who he sees. Anisha Rodriguez APRN Cardiac Electrophysiology * Telephone Encounter - Nuria Chatman, Clerical Staff - 07/14/2025 9:37 AM EDT Patient is seen for AF. He is calling because he was in the hospital at [facility] and had some tests done. He wants DR Olivas to look over the tests and wants his opinion and recommendations. Records scanned in chart Please call nir @ [phone] Thank you documented in this encounter Plan of Treatment Upcoming Encounters Date Type Department Care Team (Late st Contact Info) Description 08/26/2025 2:00 PM EST Office Visit [facility] [address] [place] [address] [address] [place] [phone] Paulino Olivas MD [address] [place] [address] [place] [address] 01/19/2026 1:30 PM EDT Office Visit [place] [address] Latoya Mahmood APRN [address] [place] [address] [place] [address] Scheduled Referrals Name Type Priority Associated Diagnoses Order Schedule AMB REFERRAL TO CARDIOLOGY Outpatient Referral STAT Abnormal stress test Ordered: 07/15/2025 documented as of this encounter Visit Diagnoses Diagnosis Abnormal stress test- Primary Other nonspecific abnormal cardiovascular system function study documented in this encounter
--- OUTSIDE RECORDS SUMMARY | 2025-08-08 14:41 | XMS_ITS | Encounter Summary ---
Author Organization [facility] [address] Care Team Providers Care Pharmacy Delivery Driver Name Role Phone Unavailable Primary Care Provider Unavailabl e Encounter Details Date Type Department Care Team (Latest Contact Info) Description 06/19/2025 Results Follow-Up [facility] [address] [address] Paulino Olivas MD [address] [place] [address] [place] [address] EC ECHOCARDIOGRAM COMPLETE W DOPPLER AND COLOR [...] Office Visit [facility] [address] [phone] Paulino Olivas MD [address] [place] [address] [place] [address] 01/19/2026 1:30 PM EDT [place] [address] Latyoa Mahmood, DINKEY ENGINE MECHANIC [address] [place] [address] [address] [place] [id number] documented as of this encounter Visit Diagnoses Not on filedocumented in this encounter
--- OUTSIDE RECORDS SUMMARY | 2025-08-08 14:41 | XMS_ITS | Encounter Summary ---
Author Organization [place] [address] Care Team Providers Care Linux Unix Engineer Name Role Phone Unavailable Primary Care Provider Unavailabl e Reason for Visit * Reason Onset Date Comments Results 07/04/2025 ECHO and other t ests Encounter Details Date Type Department Care Team (Late st Contact Info) Description 07/04/2025 Telephone [facility] [address] [facility] [address] [place] [address] Paulino Olivas MD [address] [place] [address] Results (ECHO and other tests ) Social [...] of the ECHO. Please call Nir @ [phone] Thank you documented in this encounter Plan of Treatment Upcoming Encounters Date Type Department Care Team (Late st Contact Info) Description 08/26/2025 2:00 PM EST Office Visit [facility] [address] [place] [address] [address] [place] [address] Paulino Olivas MD [address] [place] [address] [place] [address] 01/19/2026 1:30 PM EDT Office Visit [facility] [place] [address] Latoya Mahmood APRN [address] [place] [address] [address] [place] [address] documented as of this encounter Visit Diagnoses Not on filedocumented in this encounter
--- OUTSIDE RECORDS SUMMARY | 2025-08-08 14:41 | XMS_ITS | Encounter Summary ---
Author Organization [place] [address] Care Team Providers Care Plate Sensitizer Name Role Phone Unavailable Primary Care Provider Unavailabl e Reason for Visit * Reason Onset Date Comments Patient Question 07/24/2025 Encounter Details Date Type Department Care Team (Late st Contact Info) Description 07/24/2025 Telephone [facility] [place] [address] [place] [address] Enoc Rod MD [address] [place] [address] [place] [address] Patient Question Social History Tobacco Use Types Packs/Day Years [...] encounter Miscellaneous Notes * Telephone Encounter - Marleen Dickey MA - 07/29/2025 1:08 PM EST spoke with pt in regards to testing and following up, pt was informed on further testing and referrals per DD office not. Pt will continue to follow up with [facility] and will notify us if anything else is needed. * Telephone Encounter - Phyllis Spicer - 07/29/2025 11:36 AM EST Pt calling to speak to Marleen. Pt does not want to speak to anyone else and is upset that MICHELLE is notcalling him back. Pt would like call back today. * Telephone Encounter - Christie Bowen MA - 07/28/2025 2:03 PM EST Awaiting for Marleen to reach pt. * Telephone Encounter - Latoya Mahmood, HAUL TRUCK DRIVER - 07/28/2025 2:02 PM EST Called and tried to answer questions. He wants to speak to Marleen. Thanks * Telephone Encounter - Maddy Montague - 07/28/2025 12:08 PM EST Patient was hesitant to go into details but stated two times he would like a call back from DD nurse he felt there was a misunderstanding at the visit on 07/21/25 Please call [phone] * Telephone Encounter - Christie Bowen MA - 07/28/2025 9:57 AM EST HIPAA compliant LTCB Inform pt of DD response. * Telephone Encounter - Enoc Rod MD - 07/26/2025 5:23 PM EST For an abnormal stress test, please follow up with his Protection Mgr to assess risks/benefits of cath. And discuss with him, the abnormal stress test. * Telephone Encounter - Pari Chong RMA - 07/24/2025 3:32 PM EST Please advise. * Telephone Encounter - Nathan Gaines NA - 07/24/2025 2:31 PM EST Pt stated that he never received clarification from Dr. Rod as to why [facility] wants to do Cath procedure. Please return pt's call to discuss. documented in this encounter Plan of Treatment Upcoming Encounters Date Type Department Care Team (Late st Contact Info) Description 08/26/2025 2:00 PM EST Office Visit [facility] [address] [place] [address] [address] [place] [address] Paulino Olivas MD [address] [place] [address] [place] [address] 01/19/2026 1:30 PM EDT [place] [address] Latoya Mahmood M, HAUL TRUCK DRIVER [address] [place] [address] [place] [address] documented as of this encounter Visit Diagnoses Not on filedocumented in this encounter
--- OUTSIDE RECORDS SUMMARY | 2025-08-08 14:41 | XMS_ITS | Encounter Summary ---
Author Organization [place] [address] Care Team Providers Care Health Occupations Teacher Name Role Phone Unavailable Primary Care Provider Unavailabl e Reason for Visit * Reason Onset Date Comments Results 08/04/2025 Ultrasound resul ts Encounter Details Date Type Department Care Team (Late st Contact Info) Description 08/04/2025 Telephone [facility] [address] [address] Enoc Rod MD [address] [place] [address] [place] [address] Results (Ultrasound results) Social History Tobacco Use Types Packs/Day Years [...] Telephone Encounter - Marleen Dickey MA - 08/04/2025 3:44 PM EST HIPAA compliant VMLTCB documented in this encounter Plan of Treatment Upcoming Encounters Date Type Department Care Team (Late st Contact Info) Description 08/26/2025 2:00 PM EST Office Visit [facility] [address] [facility] [address] [place] [address] Paulino Olivas MD [address] [place] [address] [place] [address] 01/19/2026 1:30 PM EDT Office Visit [facility] [address] [address] Latoya Mahmood APRN [address] [place] [address] [place] [address] documented as of this encounter Visit Diagnoses Not on filedocumented in this encounter Additional Health Concerns Assessment Noted Time A fall risk assessment has been complete d for the patient 07/25/2025 3:54 PM EST documented as of this encounter
--- OUTSIDE RECORDS SUMMARY | 2025-08-08 14:41 | XMS_ITS | Clinical Summary ---
Author Organization [facility] [place] Address [address] [place] [address] Phone Care Team Providers Care Agile Java Developer Name Role Phone Unavailable Primary Care Provider [...] mg by mouth 3 times daily. Active aspirin 81 mg Oral Tablet, Delayed Release (E.C.) Take 1 Tablet by mouth daily. 30 Tablet 11 07/21/2025 Active Active Problems Problem Noted Date Diagnosed Date PAF (paroxysmal atrial fibrillation) 05/20/2025 CAD (coronary artery disease) 05/20/2025 Hyperlipidemia 05/20/2025 Essential hypertension 05/20/2025 Encounters Date Type Department Care Team Description 08/08/2025 Orders Only [facility] [address] [place] [phone] Yoandy Zimmer, Pre-op exam (Primary Dx); Infrarenal abdominal aortic aneurysm (AAA) without rupture 08/07/2025 10:45 AM EST Office Visit [facility] [address] [place] [phone] Yoandy Zimmer, Infrarenal abdominal aortic aneurysm (AAA) without rupture (Primary Dx); Cigarette nicotine dependence with nicotine-induced disorder 08/05/2025 Telephone [facility] [address] [place] [phone] Karmen Bowers MA Appointment Needed 08/04/2025 1:02 PM EST - 08/04/2025 11:59 PM EST Hospital Encounter [address] [place], [place] [phone] Yoandy Zimmer, Infrarenal abdominal aortic aneurysm (AAA) without rupture Discharge Disposition: Home or Self Care 08/04/2025 Telephone [facility] [place] [address] [place] [address] Enoc Rod MD Results (Ultrasound results) 07/25/2025 3:40 PM EST Office Visit [facility] [address] [place] [phone] Yoandy Zimmer DO Venous insufficiency (Primary Dx); Infrarenal abdominal aortic aneurysm (AAA) without rupture 07/24/2025 Telephone [facility] [address] [phone] Enoc Rod MD Patient Question 07/24/2025 Results Follow-Up [facility] [address] [address] Latoya Mahmood APRN [facility] AAA SCREENING EXAM MEDICARE 07/23/2025 10:22 AM EST - 07/23/2025 11:59 PM EST Hospital Encounter [facility] [place] [address] Enoc Rod MD PAF (paroxysmal atrial fibrillation) (HCC); Leg swelling; Abdominal aortic aneurysm (AAA) without rupture, unspecified part; Tobacco abuse Discharge Disposition: Home or Self Care 07/22/2025 1:30 PM EST - 07/22/2025 11:59 PM EST Hospital Encounter [facility] PFT [facility] [place] [address] PAF (paroxysmal atrial fibrillation) (HCC) Discharge Disposition: Home or Self Care 07/21/2025 2:30 PM EST Office Visit [facility] [address] [address] Enoc Rod MD PAF (paroxysmal atrial fibrillation) (HCC) (Primary Dx); Leg swelling; Abdominal aortic aneurysm (AAA) without rupture, unspecified part; Tobacco abuse 07/14/2025 Telephone [facility] [address] [place] [address] [place] [phone] Shefali Olivas MD Other 07/04/2025 Telephone [facility] [address] [place] [address] [place] [phone] Shefali Olivas MD Results (ECHO and other tests ) 06/19/2025 12:52 PM EDT - 06/19/2025 11:59 PM EDT Hospital Encounter [facility] ECHO [facility] [place] [address] Shefali Olivas MD PAF (paroxysmal atrial fibrillation) (HCC) Discharge Disposition: Home or Self Care 06/19/2025 12:30 PM EDT - 06/19/2025 12:51 PM EDT Hospital Encounter [facility] HOLTER MONITOR [facility] [place] [address] Shefali Olivas MD PAF (paroxysmal atrial fibrillation) (HCC) Discharge Disposition: Home or Self Care 06/19/2025 Results Follow-Up [facility] [address] [place] [address] [place] [phone] Shefali Olivas MD EC ECHOCARDIOGRAM COMPLETE W DOPPLER AND COLOR FLOW MAPPING 06/12/2025 2:00 PM EDT Office Visit [facility] Medicine [address] [phone] Lety Kauffman MD Snoring (Primary Dx); PAF (paroxysmal atrial fibrillation) (HCC); Essential hypertension; Coronary artery disease involving [place] heart without angina pectoris, unspecified vessel or lesion type; Mood disorder; Obesity (BMI 30.0-34.9) 05/21/2025 Telephone [facility] [address] [place] [address] [place] [phone] Shefali Olivas MD Other 05/20/2025 2:30 PM EDT Office Visit [facility] [address] [place] [address] [place] [phone] Shefali Olivas MD PAF (paroxysmal atrial fibrillation) (HCC) (Primary Dx) 05/16/2025 Telephone [facility] [address] [place] [phone] Shefali Olivas MD Referral 05/16/2025 Telephone [facility] [address] [place] [phone] Shefali Olivas MD Appointment Needed (MANAGER ENGINE appt ref by Frances Cowart APRN @ [facility]) from Last 3 Months Medical History Medical [...] EST Respiratory Rate - - Oxygen Saturation 98% 07/21/2025 2:20 PM EST Inhaled Oxygen Concentration - - Weight 119.7 kg (264 lb) 08/07/2025 10:50 AM EST Height 182.9 cm (6') 07/25/2025 3:54 PM EST Body Mass Index 35.8 07/25/2025 3:54 PM EST Plan of Treatment Upcoming Encounters Date Type Department Care Team (Late st Contact Info) Description 08/26/2025 2:00 PM EST Office Visit [facility] [address] [place] [address] [address] [place] [phone] Shefali Olivas MD [address] [place] [address] [address] [place] [address] 01/19/2026 1:30 PM EDT Office [place] [address] Latoya Mahmood, ELECTROPHONIC ENGINEER [address] [place] [address] [place] [address] Health Maintenance Due Date Last Done Comments Wellness Exam Medicare 1958 Hepatitis C Screening 1972 Cologuard 1999 Colon Cancer Screening 1999 Colonoscopy 1999 FIT 1999 Sigmoidoscopy 1999 Virtual Colonography 1999 RSV or 60+ (1 - Ris k 50-74 years 1-dose series) 2004 Zoster (1 of 2) 2004 Pneumococcal Vaccine 50+ (2 of 2 - PCV) 05/04/2011 05/04/2010, 09/18/2007 DTaP/TDaP/Td (2 - Td or Tdap) 08/27/2022, 08/22/1996 COVID-19 Vaccine (2024-2 6 season) 2025 Influenza Vaccine (#1) 2025 [...] CREATININE ISTAT Routine 08/04/2025 2:10 PM EST [facility] AAA SCREENING EXAM MEDICARE Routine 07/23/2025 11:13 AM EST PAF (paroxysmal atrial fibrillation) (HCC) Leg swelling Abdominal aortic aneurysm (AAA) without rupture, unspecified part Tobacco abuse PULMONARY FUNCTION TEST Routine 07/22/2025 1:46 PM EST PAF (paroxysmal atrial fibrillation) (HCC) POCT EKG Routine 07/21/2025 2:32 PM EST PAF (paroxysmal atrial fibrillation) (HCC) EC ECHOCARDIOGRAM COMPLETE W DOPPLER AND COLOR FLOW MAPPING Routine 06/19/2025 2:25 PM EDT PAF (paroxysmal atrial fibrillation) (HCC) HOLTER MONITOR RECORDING AND ANALYSIS Routine 06/19/2025 2:13 PM EDT PAF (paroxysmal atrial fibrillation) (HCC) POCT EKG Routine 05/20/2025 2:41 PM EDT PAF (paroxysmal atrial fibrillation) (HCC) from Last 3 Months Results * CT ANGIOGRAM CHEST ABDOMEN PELVIS [...] CLINICAL HISTORY: I71.43-Infrarenal abdominal aortic aneurysm, without [id number]. COMPARISON: None. PROCEDURE COMMENTS: Multidetector CT angiography [...] CLINICAL HISTORY: I71.43-Infrarenal abdominal aortic aneurysm, without [id number]. COMPARISON: None. PROCEDURE COMMENTS: Multidetector CT angiography [...] - 1.3 mg/dL 08/04/2025 2:12 PM EST [facility] Blood BLOOD SPECIMEN / Unknown 08/04/2025 2:10 PM EST 08/04/2025 2:12 PM EST us Yoandy Zimmer DO POINT OF CARE TEST ORDERABLES Fi nal Result [facility] [address] [place] [address] * [facility] AAA SCREENING EXAM MEDICARE (07/23/2025 11:13 AM [...] VASCULAR ORDERABLES Final Re sult * (ABNORMAL) PULMONARY FUNCTION TEST (07/22/2025 1:46 PM EST) [facility] FVC_PRE 3.85 3.11 - 5.28 L 07/23/2025 12:14 PM EST [facility] FEV1_PRE 2.84 2.29 - 3.94 L 07/23/2025 12:14 PM EST [facility] FEV1/FVC_PRE 73.86 63.03 - 86.92 % 07/23/2025 12:14 PM EST [facility] Hb_PRE 14.30 g(Hb)/dL 07/23/2025 12:14 PM EST [facility] ERV_PRE 0.33(L) 0.41 - 2.63 L 07/23/2025 12:14 PM EST [facility] RV_PRE 2.90 1.56 - 3.94 L 07/23/2025 12:14 PM EST [facility] RV%TLC_PRE 40.21 24.34 - 47.44 % 07/23/2025 12:14 PM EST [facility] TLC_PRE 7.21 5.83 - 8.95 L 07/23/2025 12:14 PM EST [facility] FVC_Pre%REF 92 % 07/23/2025 12:14 PM EST [facility] FEV1_Pre%REF 90 % 07/23/2025 12:14 PM EST [facility] RV_Pre%REF 110 % 07/23/2025 12:14 PM EST [facility] TLC_Pre%REF 98 % 07/23/2025 12:14 PM EST [facility] ERV_Pre%REF 26 % 07/23/2025 12:14 PM EST [facility] 07/22/2025 1:46 PM EST Impressions [facility] - 07/23/2025 12:14 PM EST Normal spirometry and low ERV due to obesity Mildy decrease diffusion capacity with possible Pulmonary vascular disorder us Sehfali Olivas MD PFT ORDERABLES Final Re sult [facility] [address] [place] [address] * (ABNORMAL) POCT EKG (07/21/2025 2:32 PM EST) Only the most recent of2 resultswithin the time period is included. 07/21/2025 2:32 PM EST Impressions [facility] OFFICE - 07/21/2025 2:32 PM EST Afib with CVR, no dynamic ST abnormalities. us Enoc Rod MD POINT OF CARE CARDIOLOGY Final R esult [facility] OFFICE * EC ECHOCARDIOGRAM COMPLETE W DOPPLER AND [...] Radha [place] Test Date: 2025-06-25 Pat Name: [facility] Department: DEPID Room: Gender: Male Photo Offset Printer: : 1955 Requested By: SHEFALI MATOS Order Number: [id number] Reading MD: Adriano Harley MD Interpretive Statements [employer] Worker Date: 06/19/2025 Referring Provider: Dr. Shefali Olivas [...] %. The study included an Atrial Fibrillation/Flutter Drummond of 100 % with 1 % in [...] Radha [place] Test Date: 2025-06-25 Pat Name: [facility] Department: DEPID Room: Gender: Male Photo Offset Printer: : 1955 Requested By: SHEFALI LAROSE Order Number: [id number] Reading MD: Adriano Harley MD Interpretive Statements [employer] Mill Worker Date: 06/19/2025 Referring Provider: Dr. Shefali Olivas [...] %. The study included an Atrial Fibrillation/Flutter Drummond of 100 % with 1% in RVR and 4 % in SVR. The longest episode was 1d 20h 40m 56.8s, 06/19 14:17:19, and the Fastest episode was 145 bpm, 06/19 14:17:19. There was 1 Patient Trigger. Electronically Signed On 06-25-2025 10:23:36 EDT by Adriano Harley MD Shefali Olivas MD IMG HOLTER MONITOR ORDER PINA Final Result from Last 3 Months Insurance MEDICARE [place] PART A AND B Member Subscriber Plan / Payer (Ef fective 2011-Present) Name:Nir Johnson Member ID:[id number] Relation to Subscriber:Self Name:Nir Johnson Subscriber ID:[id number] Payer ID:Not on file Group ID:Not on file Type:Not on file Address: [address] MEDICARE [place] PART A AND B ANTHEM
[2025-08-08 15:26] LABS: Chloride 104 mmol/L (98-107); Sodium 144 mmol/L (136-145)
[2025-08-08 15:27] LABS: Potassium 3.8 mmoL/L (3.5-5.1)
[2025-08-08 15:30] LABS: Anion Gap 16.8 mEq/L (5-15); Blood Urea Nitrogen 12 mg/dl (9-20); Calcium 8.9 mg/dl (8.4-10.2); Carbon Dioxide 27 mmol/L (22.0-30.0); Creatinine,Serum 1.00 mg/dl (0.66-1.25); Estimated Glomerular Filt Rate 74 ml/min (>60); GFR (African American) 89 ML/MIN (>60); Glucose 99 mg/dl (74-100)
[2025-08-08 16:17] LABS: Hematocrit 41.3 % (42.0-52.0); Hemoglobin 13.8 g/dL (14.1-18.0); Immature Granulocytes % 0.5 %; Mean Corpuscular HGB Conc 33.4 g/dL (31.8-35.4); Mean Corpuscular Hemoglobin 28.5 pg (27.0-31.2); Mean Corpuscular Volume 85.2 fl (80-94); Nucleated Red Blood Cells % 0 %; Platelet Count 169 K/mm3 (142-424); Red Blood Count 4.85 M/mm3 (4.60-6.20); Red Cell Distribution Width-SD 55.2 fL; White Blood Count 6.4 K/mm3 (4.8-10.8)
== END 2025-08-08 23:59 | disposition home or self-care (01) ==
LOC: LAB 14:39
PROVIDERS: PCP Student in an Organized Health Care Education/Training Program; Visit Provider Internal Medicine
DX: I25.10 Atherosclerotic heart disease of native coronary artery without angina pectoris (principal)
CPT/HCPCS: 36415; 80048; 85025

== ENCOUNTER 2025-08-12 13:17 | Day surgery (SDC) | payer MEDICARE, BC, SELFPAY ==
[2025-08-12 13:27] VITALS: BP 137/96; PULSE 72; RESP 18; O2SAT 97; BMI 33.9
[2025-08-12 13:37] VITALS: BP 154/97; PULSE 73; RESP 18; O2SAT 97
[2025-08-12] MEDS: LIDOCAINE 1% 5ML PF VIAL 5 ML (13:39)
[2025-08-12] MEDS: DEXAMETHASONE 10MG/ML 1ML VIAL 10 MG (13:39)
[2025-08-12 13:45] VITALS: BP 154/97; PULSE 73; RESP 18; O2SAT 97
--- NOTE | 2025-08-12 13:45 | EXP.PAIN.PRO ---
Procedure Date: 08/12/25 Time: 13:45 Anesthesiologist:: Yoandy Villarreal CRNA Complications:: None Pre-procedure Diagnosis:: DJD left knee. Chronic left knee pain. Post-procedure Diagnosis:: Same. Indications for Procedure:: Patient is a pleasant 70-year-old male who comes to our clinic today for left infrapatellar nerve block. Patient describes left knee pain as constant, dull, aching, sharp, stabbing. He reports having difficulty with ambulation due to left knee pain. Difficulty with left knee flexion. He rates his pain 8/10. Procedure Details:: Details of the procedure explained to the patient. The patient taken procedure and placed in the sitting position. The over the left knee was cleaned using chlorhexidine as a cleansing solution. Using a 25-gauge inch and half needle the left infrapatellar branch of the saphenous nerve was accessed with ease. After negative aspiration 4 cc of 1% lidocaine +4 cc of 0.25% Marcaine and 10 mg of dexamethasone was injected incrementally. Patient tolerated procedure without difficulty. Dental complications. Plan and Disposition:: Patient was discharged without incident.
[2025-08-12 13:47] VITALS: BP 141/99; PULSE 71; RESP 18; O2SAT 96
== END 2025-08-12 13:47 | disposition home or self-care (01) ==
PROVIDERS: PCP Student in an Organized Health Care Education/Training Program; Visit Provider Nurse Anesthetist, Certified Registered
DX: M17.12 Unilateral primary osteoarthritis, left knee (principal); I48.91 Unspecified atrial fibrillation; I25.10 Atherosclerotic heart disease of native coronary artery without angina pectoris; I10 Essential (primary) hypertension; E78.5 Hyperlipidemia, unspecified; Z96.651 Presence of right artificial knee joint; Z82.49 Family history of ischemic heart disease and other diseases of the circulatory system; F17.200 Nicotine dependence, unspecified, uncomplicated; Z91.048 Other nonmedicinal substance allergy status; Z79.899 Other long term (current) drug therapy; Z79.01 Long term (current) use of anticoagulants; Z79.82 Long term (current) use of aspirin
CPT/HCPCS: 64450; J1100; J2003